=== PATIENT | female | born 1995 | race Caucasian/White ===

== ENCOUNTER 2019-08-23 09:40 | Outpatient (CLI) | payer MEDICAID, SELFPAY ==
--- NOTE | 2019-08-23 | US_ITS ---
WS: [id number] OB ultrasound, 08/23/2019 Clinical Data: NORMAL FIRST IN SECOND TRIMESTER Comparison: None. Findings: There is a single intrauterine in the breech presentation. The placenta is posterior and gr mohan 0. There is a normal amount of amnionic fluid. The heart rate is 157 beats per minute. Measurements of growth and development: BPD: 4.6 cm HC: 18.0 cm AC: 15.9 cm FL: 3.3 cm The estimated weight is 365 or approximately 13 ounces The estimated gestational age is 20 week s 3 days with an IFTIKHAR of approximately 01/07/2020. anatomy show a normal stomach, kidneys, bladder, cord insertion, three-vessel cord, entire spin e, four-chamber heart, lateral cerebral ventricles, cerebellum and cisterna magna. US/US OB >= 14 weeks fetus [id number] Impression: 1. Single intrauterine in breech presentation. 2. Estimated gestational age 20 weeks 3 days with an IFTIKHAR of 01/07/2020. 3. heart rate 157 beats per minute.
== END 2019-08-23 09:41 | disposition home or self-care (01) ==
LOC: RADOUTREAD 16:27
PROVIDERS: Family Provider Family Medicine; PCP Family Medicine; Referring Provider Family Medicine; Visit Provider Family Medicine
DX: Z34.02 Encounter for supervision of normal first pregnancy, second trimester (principal)

== ENCOUNTER 2019-09-09 09:37 | Outpatient (CLI) | payer MEDICAID, SELFPAY | END 2019-09-09 10:45 | disposition home or self-care (01) | LOC: ER 10:32 → OPOB 12:49 | PROVIDERS: Visit Provider Family Medicine | DX: Z53.21 Procedure and treatment not carried out due to patient leaving prior to being seen by health care provider (principal) | CPT/HCPCS: 99281 ==

== ENCOUNTER 2019-09-09 10:10 | Outpatient (CLI) | payer MEDICAID, SELFPAY ==
[2019-09-09 10:20] VITALS: BP 117/61; PULSE 92; RESP 20; TEMP 36.9
[2019-09-09 10:25] VITALS: BMI 44.1
[2019-09-09 10:40] VITALS: BP 117/61; PULSE 92; RESP 20; TEMP 36.9
== END 2019-09-09 10:45 | disposition home or self-care (01) ==
LOC: OPOB 10:30 → OBGYN 10:48 → OPOB 09-10 07:49
PROVIDERS: Family Provider Family Medicine; PCP Family Medicine; Visit Provider Family Medicine
DX: O26.899 Other specified pregnancy related conditions, unspecified trimester (principal); Z3A.00 Weeks of gestation of pregnancy not specified; Z91.81 History of falling
CPT/HCPCS: 99211

== ENCOUNTER 2019-09-27 14:42 | Outpatient (CLI) | payer OTHER, MEDICAID, SELFPAY ==
[2019-09-27 15:00] VITALS: BMI 44.1
[2019-09-27 15:40] VITALS: BP 113/52; PULSE 74; RESP 16; TEMP 36.9
== END 2019-09-27 15:40 | disposition home or self-care (01) ==
LOC: OPOB 15:08 → OBGYN 15:15 → OPOB 09-28 14:44
PROVIDERS: Visit Provider Family Medicine
DX: O26.899 Other specified pregnancy related conditions, unspecified trimester (principal); Z3A.00 Weeks of gestation of pregnancy not specified
CPT/HCPCS: 59025; 99211

== ENCOUNTER 2019-11-16 19:09 | Outpatient (CLI) | payer MEDICAID, SELFPAY ==
[2019-11-16] VITALS (10 sets, daily range): BP systolic 102–116; BP diastolic 40–66; PULSE 88–98; RESP 16; TEMP 37.1; BMI 46.0
[2019-11-16] MEDS: famotidine 20 mg Tablet 40 MG PO (20:24)
[2019-11-16 20:43] LABS: Bilirubin Urine Neg (NEGATIVE); Blood Urine Neg (Negative); Glucose Urine UA Norm (Normal); Ketones Urine 1+ (Negative); Leukocyte Esterase Urine Negative (Negative); Nitrate Urine Negative (Negative); Protein Urine Neg (Negative); Specific Gravity, Urine 1.025 (1.005-1.030); Urine Appearance Hazy (CLEAR); Urine Color Yellow (Yellow); Urobilinogen Urine 1 mg/dL (Negative); pH Urine 5 (5-7)
[2019-11-16 21:16] LABS: RBC Urine 0-4 /hpf (0-2)
[2019-11-16 21:17] LABS: Bacteria Urine 1+; Squamous Epithelial Cell Urine 25-40 (0-5)
[2019-11-16 21:18] LABS: Add Urine Culture? No
== END 2019-11-16 21:45 | disposition home or self-care (01) ==
LOC: OPOB 19:11 → OBGYN 19:12
PROVIDERS: Family Provider Family Medicine; PCP Family Medicine; Visit Provider Family Medicine
DX: O36.8190 Decreased fetal movements, unspecified trimester, not applicable or unspecified (principal); Z3A.00 Weeks of gestation of pregnancy not specified
CPT/HCPCS: 81001; 99211

== ENCOUNTER 2020-01-13 06:35 | Inpatient (IN) | payer MEDICAID, SELFPAY ==
[2020-01-13] VITALS (31 sets, daily range): BP systolic 0–155; BP diastolic 0–87; PULSE 72–83; RESP 18–20; TEMP 36.5–37; BMI 49.1
[2020-01-13 06:54] LABS: Basophils % 0.3 %; Eosinophils # 0.2 10^3/uL (0.0-0.8); Hematocrit 34.9 % (37.0-47.0); Hemoglobin 11.4 g/dL (11.5-15.3); Lymphocytes # 1.9 10^3/uL (0.8-4.8); Lymphocytes % 18.4 %; Mean Corpuscular HGB Conc 32.7 g/dL (30.0-36.0); Mean Corpuscular Hemoglobin 29.5 pg (28.0-34.0); Mean Corpuscular Volume 90.2 fL (81-99); Mean Platelet Volume 9.8 fL (7.4-10.4); Monocytes # 0.7 10^3/uL (0.2-0.9); Monocytes % 6.7 %; Neutrophils # 7.3 10^3/uL (1.8-7.7); Neutrophils % 72.3 %; Nucleated Red Blood Cells % 0 %; Platelet Count 386 10^3/cmm (130-400); Red Blood Count 3.87 10^6/uL (4.1-5.3); Red Cell Distribution Width 12.9 % (12.1-15.1); White Blood Count 10.1 10^3/uL (4.0-10.0)
[2020-01-13] MEDS: miSOPROStol 100 mcg tablet 25 MCG VAGINAL ×3 (07:27→20:31)
[2020-01-13] MEDS: lactated ringers 1,000 ML 999 ML IV (17:46)
[2020-01-13] MEDS: acetaminophen 325 mg Tablet 650 MG PO (23:57)
[2020-01-14] VITALS (151 sets, daily range): BP systolic 0–170; BP diastolic 0–100; PULSE 71–105; RESP 16–20; TEMP 36.6–37.8; O2SAT 94–99
[2020-01-14] MEDS: fentaNYL 50 mcg/mL INJ 2mL IVP ×3 (02:57→06:15)
[2020-01-14] MEDS: oxytocin 30 UNIT/500 ML BAG IV (06:09)
[2020-01-14] MEDS: dextrose 5%-lactated ringers 1,000 ML 125 ML IV ×3 (06:10→20:08)
--- NOTE | 2020-01-14 08:17 | ANES.PREANE2 ---
Pre-Anesthetic Assessment Pre-Anesthetic Assessment: Height/Weight: Height 1.55 m Weight 117.934 kg Temp Pulse Resp BP Pulse Ox 98.0 F 104 H 20 H 127/72 98 01/13/20 21:30 01/14/20 08:13 01/14/20 06:15 01/14/20 08:13 01/14/20 08:14 Preop Diagnosis: IUP Proposed Procedure: Labor Lumbar Epidural Was Beta Ashanti taken within 24 hours: N/A Last intake: 01/12 Social: Social History: No alcohol and No tobacco Exam: Pre-Anes Outpt Exam: alert, oriented x 3, clear to auscultation bilaterally and regular rate & rhythm Airway: Submandibular: WNL Cervical ROM: WNL MP: 3 Dentition: Full History/ROS: No significant history except as noted and No significant complaints Pulmonary: Pulmonary: None reported CV/HEM: CV/HEM: None reported : : None reported Hepatic: Hepatic: None reported GI: GI: GERD Metabolic: Metabolic: Morbid obesity Musc/skel: Musc/skel: None reported Neuropsych: Neuropsych: None reported Anesthetic Plan: ASA status: 2 Anesthesia: General and Regional (specify below) (epidural) Meds/Allergies Current Medications: Current Medications Generic Name Dose Route Start Last Admin Trade Name Freq PRN Reason Stop Dose Admin Acetaminophen 650 mg 01/13/20 06:39 01/13/20 23:57 Tylenol PO 650 mg Q6H PRN Administration MILD TO MODERATE PAIN Fentanyl 25 - 100 mcg 01/14/20 02:50 01/14/20 06:15 Sublimaze IVP 75 mcg Q1H PRN Administration SEVERE PAIN Dextrose/Lactated Ringer's 1,000 mls @ 125 m ls/hr 01/13/20 06:45 01/14/20 06:10 Dextrose 5%-Lact ated Ringers IV 125 mls/hr .Q8H ASHTYN Administration Lactated Ringer's 1,000 mls @ 999 m ls/hr 01/13/20 17:34 01/13/20 17:46 Lactated Ringers IV 999 mls/hr .Q1H1M PRN Administration hyperstimulation Oxytocin 30 unit in 500 ml s @ 1 mls/hr 01/14/20 05:45 01/14/20 06:10 Pitocin IV 2 milliunit/min .Q24H ASHTYN 2 mls/hr Titration Protocol 1 MILLIUNIT/MIN PFSH Anesthesia Female Reproductive History: : 1 Data Anesthesia CBC & Chem 7: 01/13/20 06:25 Other Labs: Laboratory Results - last 48 hr 01/13/20 06:25 WBC 10.1 H RBC 3.87 L Hgb 11.4 L Hct 34.9 L MCV 90.2 MCH 29.5 MCHC 32.7 RDW 12.9 Plt Count 386 MPV 9.8 Neut % (Auto) 72.3 Lymph % (Auto) 18.4 [place] % (Auto) 6.7 Eos % (Auto) 2.0 Baso % (Auto) 0.3 Neut # (Auto) 7.3 Lymph # (Auto) 1.9 [place] # (Auto) 0.7 Eos # (Auto) 0.2 Baso # (Auto) 0.0 Nucleated RBC % (auto) 0 Nucleated RBCs # 0.0 Cardiac Studies: No Data to Display Anesthesia Procedures Epidural: Time Out Performed: Yes Consents Signed: Procedure Consent Consent: from patient, risks and benefits reviewed and patient agrees to proceed Lumbar Level: L3-L4 Epidural position: sitting Epidural procedure: sterile prep of area, 1% lidocaine to numb the area (5), 18 g needle, negative for paresthesia passed, neg for paresthesia, test dose given, 1.5% xylocaine 1:200k epi (5), 0.2% Ropivacaine bolus ml (5), placed PCEA (5cc q10min x 3), no systemic response, sterile dressing applied, L.U.D. no apparent complications and 0.2% Ropiavacaine @ mls/hr (11) Additional Comments: Called to OB for epidural placement, pt evaluated and assessed for placement and explained procedure. Labs reviewed. Pt agrees to proceed. placed to 5cm in space and tolerated well. Bolused with pump 5cc and VSS throughout per nursing chart. Last BP 140/66. Pain much improved.
[2020-01-14] MEDS: lactated ringers 1,000 ML 999 ML IV (08:26)
[2020-01-14] MEDS: ampicillin 2,000 MG in sodium chloride 0.9% (plus) 50 ML 100 MG IV (16:04)
[2020-01-14] MEDS: ondansetron 2 mg/ML SDV 2 mL 4 MG IVP (18:37)
[2020-01-14] MEDS: ampicillin 1,000 MG in sodium chloride 0.9% (plus) 50 ML 100 MG IV (20:07)
--- NOTE | 2020-01-14 20:26 | PC.NURSE ---
Dr. Daniels at nurses station
[2020-01-14] MEDS: lidocaine 2% INJ 20 mL INJECTION (22:24)
--- NOTE | 2020-01-14 23:13 | P.PCNOB_ITS ---
Delivery Note: Date of delivery: January 14, 2020 this 24-year-old 1 now para 1 female was admitted to [facility] for misoprostol cervical ripening for induction purposes at 40 weeks and 6 days gestation. She received a total of 3 doses of misoprostol followed by Pitocin augmentation of labor. She had spontaneous rupture membranes early the morning of the day of delivery. She then baby and making slow cervical change throughout the day. She slowly dilated pleased with dilatation and with much pushing was able to deliver by spontaneous vaginal delivery a healthy, viable male at 2149. Upon delivery of the head the mouth and nose were suctioned. The shoulders were transverse and we had a significant shoulder dystocia. With resetting the legs and Michael maneuver and suprapubic pressure we were finally able to locate the left shoulder and rotate counterclockwise anteriorly and deliver the left shoulder followed by the right shoulder. The was pretty limp at . The infant was immediately laid on the mother's abdomen after suctioning and the umbilical cord was clamped and then cut and the infant was then directly brought to the warmer. Apgars were 4, 5, and 8 at 1, 5 and 10 minutes respectively. There was a nuchal cord x1. The umbilical cord did have 3 blood vessels present. Mom did not have an episiotomy but she did have a third-degree perineal and vaginal laceration. This was repaired using her epidural anesthesia as well as some local anesthesia. The placenta delivered spontaneously at 2155 and appeared to be intact. Her episiotomy was repaired with layered surgical closure using Vicryl suture. Rectal exam demonstrated no obvious extension of the laceration into the rectum. Vaginal sweep was made with a few clots. The weighed 9 pounds 11-1/2 ounces and estimated blood loss was approximately 459 mL. It should be noted that mom overnight fever of 100.0?F orally and was given ampicillin 2 g intravenously followed by 1 g intravenously 4 hours later prior to delivery. Pre-Delivery Course: This patient was followed by this physician throughout most of the course. She did begin care in [facility] but was seen by this physician and approximately 11 weeks gestation for the first visit. Maternal blood type was O+ with antibody screen negative. Hepatitis B, hepatitis C, RPR and HIV were negative. Rubella was immune and group B strep was negative. Glucose screen was normal. The patient was followed to approximately 1 week post dates. Her cervix was not very amenable for induction and therefore we put off cervical ripening until almost 41 weeks gestation. The patient was tolerating things well. She was admitted to the hospital for misoprostol cervical ripening for induction purposes on the day prior to the day of delivery. Delivery: Spontaneous vaginal delivery with moderate shoulder dystocia. Post-Delivery Status: Patient tolerated things fairly well and presently is not bleeding much at all. She will be followed for routine postdelivery care. A&P Assessment and plan (1) Spontaneous vaginal delivery: Patient is doing well at this time and will be followed for routine postdelivery care. Status: Acute (2) Shoulder dystocia during labor and delivery, delivered: The patient did finally deliver the infant after approximately 1 minute of maneuvers secondary to the shoulder dystocia. Status: Acute Coding Level of Care Code Acute Missile Inspector Preflight for [facility] Diagnoses Spontaneous vaginal delivery O80 Shoulder dystocia during labor and delivery, delivered O66.0
[2020-01-15] VITALS (11 sets, daily range): BP systolic 99–134; BP diastolic 57–72; PULSE 75–93; RESP 16–19; TEMP 36.6–37.4; O2SAT 95–98
[2020-01-15] MEDS: benzocaine-menthol 78 gm Canister 1 SPRAY TOPICAL (00:54)
--- NOTE | 2020-01-15 02:20 | PC.NURSE ---
Patient ambulated from LDR4 to 205-2 with assistance at this time in stable condition.
--- NOTE | 2020-01-15 07:21 | P.DS_ITS ---
Discharge Providers ENROUTE CONTROLLER Date of Admission: 01/13/20 06:35 Date of Discharge: 01/15/20 Attending Provider at Admission: Eduardo Daniels MD Attending Provider at Discharge: Eduardo Daniels MD Primary Care Provider: Alicia Godwin DO Diagnoses at Discharge Discharge Diagnosis (1) Spontaneous vaginal delivery: Status: Acute Problem details: Patient has done well since delivery. She is ambulating well and tolerating a regular diet. The had some problems with meconium aspiration and has been transferred to [place]. As mom has been stable will probably discharge this morning. (2) Shoulder dystocia during labor and delivery, delivered: Status: Acute Problem details: Patient has mild lochia without any problems or concerns. Reason for Visit Reason for Visit: Reason For Visit: Hospital Course Hospital Course: Patient has done well since delivery. She is ambulating well and tolerating a regular diet. She is stable for discharge at this time. Information Peripartum Data: Delivery Method: Vaginal Physical Exam Const: COMMON NORMALS: no acute distress, patient oriented x3 and well nourished (Obese.) GENERAL APPEARANCE: cooperative, comfortable and well kempt NUTRITIONAL APPEARANCE: obese ORIENTATION/CONSCIOUSNESS: Yes awake Resp: COMMON NORMALS: normal respiratory effort, No retractions, No use of accessory muscles and clear to auscultation bilaterally AUSCULTATION: clear to auscultation bilaterally Cardio: COMMON NORMALS: regular rate, regular rhythm and No murmurs present (Cardio) RATE: regular rate RHYTHM: regular rhythm GI: COMMON NORMALS: Normal to inspection, nondistended, normoactive bowel sounds present, Soft to palpation and non-tender (Fundus is firm.) PALPATION: Yes Soft to palpation : COMMON NORMALS: Yes no CVA tenderness BLADDER/KIDNEY EXAM: Yes no CVA tenderness Back/Pelvis: COMMON NORMALS: no CVA tenderness Extremity: COMMON NORMALS: normal to inspection, full ROM and no calf tenderness Neuro: COMMON NORMALS: patient oriented x3, CN's II-XII intact bilaterally, moves all extremities, no focal motor deficits and no sensory deficits noted Psych: COMMON NORMALS: mental status grossly normal, Normal thought process present, cooperative and normal affect APPEARANCE: Yes well kempt THOUGHT PROCESS: Normal thought process present Urinary Catheter Management^: Florentino: Cath Placed During This Visit: yes Reason for Continuing Indwelling Catheter: Required Immobilization for Trauma or Surgery or Anesthesia Urinary Catheter Date of Insertion: 01/14/20 Urinary Catheter Time of Insertion: 09:00 Discharge Data Data Completed and Pending: Pending at discharge Category Date Time Status Hemagram Timed Lab 01/15/20 11:09 Ordered Vitals: Last Vital Signs Temp 97.9 F 01/15/20 06:15 Pulse 91 01/15/20 06:15 Resp 16 01/15/20 06:15 BP 99/64 01/15/20 06:15 Pulse Ox 97 01/15/20 06:15 Discharge Plan Discharge Patient Disposition: Home, Self-Care Condition: Stable Prescriptions: New ibuprofen 800 mg Tablet 800 mg PO TID Qty: 90 RF: 2 docusate sodium 100 mg Capsule 100 mg PO BID Qty: 60 RF: 1 Continued Gummy 400 mcg-35 mg -25 mg-5 mg Tablet,Chewable See Rx Instructions .ROUTE .COMPLEX RF: 0 Discharge Orders: Discharge Order (Routine); Ordered 01/15/20 Ordered By: Eduardo Daniels Discharge Diet: Usual diet Discharge Activity: Resume usual activity Patient Instructions: OB Discharge Report, OB Food/Drug Interaction Guide, OB Home Care Instructions, OB Care at Home, OB Vaginal Deliveries Activity Restrictions/Additional Instructions: Patient to call this physician's office on Friday to arrange follow-up with this physician in 6 weeks. She will also follow-up as needed. Discharge Attestations ENROUTE CONTROLLER Time Spent in Discharge Care*: less than 30 min Specific Discharge Activities: Specific discharge activities: educating patient, documenting/other paperwork and evaluating patient/reviewing data Status at Discharge: Cognitive status at discharge: cognitively intact , Behavioral status at discharge: cooperative , Functional status at discharge: independent ambulation Overall status at discharge: patient is back to baseline Coding Level of Care Code Acute Station Air Traffic Control Specialist for mickie Fwd Exam Comprehensive Diagnoses Spontaneous vaginal delivery O80 Shoulder dystocia during labor and delivery, delivered O66.0
[2020-01-15] MEDS: HYDROcodone-acetaminophen 5-325 mg Tablet PO (07:38)
[2020-01-15] MEDS: prenatal vitamin Capsule 1 CAP PO (08:55)
[2020-01-15] MEDS: docusate sodium 100 mg Capsule PO (08:55)
--- NOTE | 2020-01-15 08:59 | PC.NURSE ---
[place] booklet given to mother and video played for mother and father at this time.
[2020-01-15 10:07] LABS: Hematocrit 29.7 % (37.0-47.0); Mean Corpuscular HGB Conc 33.7 g/dL (30.0-36.0); Mean Corpuscular Hemoglobin 30.3 pg (28.0-34.0); Mean Platelet Volume 9.7 fL (7.4-10.4); Platelet Count 362 10^3/cmm (130-400); Red Cell Distribution Width 12.8 % (12.1-15.1); White Blood Count 18.5 10^3/uL (4.0-10.0)
== END 2020-01-15 10:31 | disposition home or self-care (01) | DRG 768 ==
LOC: OPOB 11:02 → OBGYN 11:02
PROVIDERS: Admitting Provider Family Medicine; Family Provider Family Medicine; PCP Family Medicine; Visit Provider Family Medicine
DX: O66.0 Obstructed labor due to shoulder dystocia (principal); Z37.0 Single live birth; O70.20 Third degree perineal laceration during delivery, unspecified; O69.2XX0 Labor and delivery complicated by other cord entanglement, with compression, not applicable or unspecified; O77.0 Labor and delivery complicated by meconium in amniotic fluid; Z3A.40 40 weeks gestation of pregnancy
CPT/HCPCS: 12345; 36415; 51702; 59409; 85025; 85027; 88307; 96375; J0290; J2001; J2405; J2795; J3010

== ENCOUNTER 2021-01-19 16:33 | Emergency (ER) | payer MEDICAID, SELFPAY ==
[2021-01-19 16:53] VITALS: BP 133/83; PULSE 88; RESP 18; TEMP 37.1; O2SAT 99; BMI 41.5
--- NOTE | 2021-01-19 17:29 | ED_ITS ---
Documented by User: Sin Guerrero DO 01/19/21 18:13 HPI - Female Genitourinary General: Chief complaint: Urogenital-Female Stated complaint: , cramping Time Seen by Provider: 01/19/21 17:24 History of Present Illness: HPI Narrative: 25-year-old G2, P1 female. She states she did a test at home. She relates her last menstrual period was sometime in October she is not exactly sure. She has had a little bit of pelvic cramping she denies any vaginal bleeding some dysuria no nausea or vomiting. With her previous she was supplemented with progesterone. Previous delivered at 41 weeks there were no complications otherwise during the no gestational diabetes or hypertension. MD elicited complaint: dysuria Onset (ago): day(s) Location of symptoms: pelvis Severity: mild Quality of pain: cramping Vaginal discharge: none Vaginal bleeding: none Urinary symptoms: Dysuria Exacerbating factors: none Relieving factors: none Associated symptoms: Reports no associated symptoms; Deny abdominal pain or nausea Treatment prior to arrival: none Patient : Yes (Patient reports positive home test) Possible : at home test positive Review of Systems Const: Denies: fever(s), chills, body aches, change in appetite, fatigue or ma laise ENMT: Denies: throat pain, ear or mastoid pain, nasal discharge or nasal congestion Card: Denies: chest pain, edema, dyspnea on exertion or orthopnea Resp: Denies: dyspnea, productive cough or non-productive cough GI: Denies: abdominal pain, nausea, vomiting, hematemesis, coffee ground emesis, diarrhea, constipation, bloating, hematochezia or melena : Denies: flank pain, difficulty voiding, dysuria, urinary frequency or urinary urgency Skin/Breast: Denies: rash or pruritus Physical Exam Const: COMMON NORMALS: no acute distress GENERAL APPEARANCE: cooperative and comfortable ORIENTATION/CONSCIOUSNESS: Yes awake, Yes oriented to person, Yes oriented to place and Yes oriented to time HENMT: COMMON NORMALS: normocephalic, atraumatic, hearing grossly normal bilaterally and external ears normal HEAD & SCALP: normocephalic and atraumatic EXTERNAL EAR: Yes external ears normal Neck/C-Spine: COMMON NORMALS: no JVD Resp: COMMON NORMALS: normal respiratory effort, No retractions, No use of accessory muscles and clear to auscultation bilaterally AUSCULTATION: clear to auscultation bilaterally Cardio: COMMON NORMALS: no JVD, regular rate, regular rhythm and No murmurs present (Cardio) RATE: regular rate RHYTHM: regular rhythm GI: COMMON NORMALS: Soft to palpation and No hepatosplenomegaly present AUSCULTATION: Yes normoactive bowel sounds PALPATION: Yes Soft to palpation, No Tenderness to palpation present (GI), No Guarding due to palpation present (GI) and Yes No hepatosplenomegaly present Extremity: COMMON NORMALS: normal to inspection, capillary refill normal, no clubbing, cyanosis or edema, no calf tenderness and no pedal edema Neuro: SENSORIUM/ORIENTATION: Yes oriented to person, Yes oriented to place and Yes oriented to time Skin: COMMON NORMALS: no rashes or lesions noted GENERAL SKIN EXAM: no rashes or lesions noted Course Vital Signs: Vital signs: Vital Signs Temperature 98.7 F 01/19/21 16:53 Pulse Rate 88 01/19/21 16:53 Respiratory Rate 18 01/19/21 16:53 Blood Pressure 133/83 01/19/21 16:53 Pulse Oximetry 99 01/19/21 16:53 MDM - Female MDM Narrative: Medical decision making narrative: Is unremarkable no sign of urinary tract infection will discharge home continue rate elevated establish with OB soon as she is able. I think her cramping is his typical discomfort of Lab Data: Labs: Lab Results 01/19/21 01/19/21 01/19/21 Range/Units 17:00 17:42 17:42 WBC 9.5 (4.0-10.0) 10^3/ uL RBC 4.45 (4.1-5.3) 10^6/u L Hgb 12.5 (11.5-15.3) g/dL Hct 36.7 L (37.0-47.0) % MCV 82.5 (81-99) fL MCH 28.1 (28.0-34.0) pg MCHC 34.1 (30.0-36.0) g/dL RDW 14.1 (12.1-15.1) % Plt Count 361 (130-400) 10^3/c mm MPV 9.9 (7.4-10.4) fL Neut % (Auto) 69.5 % Lymph % (Auto) 20.9 % [place] % (Auto) 7.1 % Eos % (Auto) 1.8 % Baso % (Auto) 0.5 % Neut # (Auto) 6.63 (1.8-7.7) 10^3/u L Lymph # (Auto) 2.0 (0.8-4.8) 10^3/u L [place] # (Auto) 0.7 (0.2-0.9) 10^3/u L Eos # (Auto) 0.2 (0.0-0.8) 10^3/u L Baso # (Auto) 0.1 (0.0-0.1) 10^3/u L Nucleated RBC % (a uto) 0 % Nucleated RBCs # 0.0 /100WBC Sodium 137 (136-145) mmol/L Potassium 3.8 (3.5-5.1) mmol/L Chloride 105 (98-107) mmol/L Carbon Dioxide 20 L (22-29) mmol/L Anion Gap 15.8 (5-19) BUN 9 (6-20) mg/dL Creatinine 0.4 L (0.5-0.9) mg/dL GFR Calculation 196.1 H (90-130) mL/min Glucose 88 (65-115) mg/dL Calculated Osmolal ity 282 L (285-295) mOsm/k g Calcium 8.6 (8.5-10.5) mg/dL HCG, Qual (Negative) Urine Color Yellow (Yellow) Urine Appearance Clear (CLEAR) Urine pH 6 (5-7) Ur Specific Gravit y 1.020 (1.005-1.030) Urine Protein Neg (Negative) Urine Glucose (UA) Norm (Normal) Urine Ketones Negative (Negative) Urine Blood Neg (Negative) Urine Nitrate Negative (Negative) Urine Bilirubin Neg (Negative) Urine Urobilinogen 1 H (Negative) mg/dL Ur Leukocyte Cheryl ase Negative (Negative) 01/19/21 Range/Units 17:42 WBC (4.0-10.0) 10^3/ uL RBC (4.1-5.3) 10^6/u L Hgb (11.5-15.3) g/dL Hct (37.0-47.0) % MCV (81-99) fL MCH (28.0-34.0) pg MCHC (30.0-36.0) g/dL RDW (12.1-15.1) % Plt Count (130-400) 10^3/c mm MPV (7.4-10.4) fL Neut % (Auto) % Lymph % (Auto) % [place] % (Auto) % Eos % (Auto) % Baso % (Auto) % Neut # (Auto) (1.8-7.7) 10^3/u L Lymph # (Auto) (0.8-4.8) 10^3/u L [place] # (Auto) (0.2-0.9) 10^3/u L Eos # (Auto) (0.0-0.8) 10^3/u L Baso # (Auto) (0.0-0.1) 10^3/u L Nucleated RBC % (a uto) % Nucleated RBCs # /100WBC Sodium (136-145) mmol/L Potassium (3.5-5.1) mmol/L Chloride (98-107) mmol/L Carbon Dioxide (22-29) mmol/L Anion Gap (5-19) BUN (6-20) mg/dL Creatinine (0.5-0.9) mg/dL GFR Calculation (90-130) mL/min Glucose (65-115) mg/dL Calculated Osmolal ity (285-295) mOsm/k g Calcium (8.5-10.5) mg/dL HCG, Qual Positive H (Negative) Urine Color (Yellow) Urine Appearance (CLEAR) Urine pH (5-7) Ur Specific Gravit y (1.005-1.030) Urine Protein (Negative) Urine Glucose (UA) (Normal) Urine Ketones (Negative) Urine Blood (Negative) Urine Nitrate (Negative) Urine Bilirubin (Negative) Urine Urobilinogen (Negative) mg/dL Ur Leukocyte Cheryl ase (Negative) Discharge Plan Discharge Patient Disposition: Home Clinical Impression: , Discomfort during Condition: Stable Prescriptions: No Action 28-800 mg-mcg Tablet 1 tab PO DAILY RF: 0 Discharge Orders: Discharge ED (Routine); Ordered 01/19/21 Ordered By: Sin Guerrero Discharge Diet: Usual diet Discharge Activity: Resume usual activity Patient Instructions: Opioid Safety Activity Restrictions/Additional Instructions: Follow-up with [facility] as soon as you are able Coding Level of Care Code ED Cloth Doffer for Chg Fwd Exam Comprehensive Documented by User: Fco Angulo, 01/19/21 18:51 HPI - Female Genitourinary General: Chief complaint: Urogenital-Female Stated complaint: , cramping Time Seen by Provider: 01/19/21 17:24 Course Vital Signs: Vital signs: Vital Signs Temperature 98.7 F 01/19/21 16:53 Pulse Rate 88 01/19/21 16:53 Respiratory Rate 18 01/19/21 16:53 Blood Pressure 133/83 01/19/21 16:53 Pulse Oximetry 99 01/19/21 16:53 MDM - Female MDM Narrative: Medical decision making narrative: Originally signed out to me by Dr. Guerrero. He took care of the patient. He arranged for her discharge, as her results came back Lab Data: Labs: Lab Results 01/19/21 01/19/21 01/19/21 Range/Units 17:00 17:42 17:42 WBC 9.5 (4.0-10.0) 10^3/ uL RBC 4.45 (4.1-5.3) 10^6/u L Hgb 12.5 (11.5-15.3) g/dL Hct 36.7 L (37.0-47.0) % MCV 82.5 (81-99) fL MCH 28.1 (28.0-34.0) pg MCHC 34.1 (30.0-36.0) g/dL RDW 14.1 (12.1-15.1) % Plt Count 361 (130-400) 10^3/c mm MPV 9.9 (7.4-10.4) fL Neut % (Auto) 69.5 % Lymph % (Auto) 20.9 % [place] % (Auto) 7.1 % Eos % (Auto) 1.8 % Baso % (Auto) 0.5 % Neut # (Auto) 6.63 (1.8-7.7) 10^3/u L Lymph # (Auto) 2.0 (0.8-4.8) 10^3/u L [place] # (Auto) 0.7 (0.2-0.9) 10^3/u L Eos # (Auto) 0.2 (0.0-0.8) 10^3/u L Baso # (Auto) 0.1 (0.0-0.1) 10^3/u L Nucleated RBC % (a uto) 0 % Nucleated RBCs # 0.0 /100WBC Sodium 137 (136-145) mmol/L Potassium 3.8 (3.5-5.1) mmol/L Chloride 105 (98-107) mmol/L Carbon Dioxide 20 L (22-29) mmol/L Anion Gap 15.8 (5-19) BUN 9 (6-20) mg/dL Creatinine 0.4 L (0.5-0.9) mg/dL GFR Calculation 196.1 H (90-130) mL/min Glucose 88 (65-115) mg/dL Calculated Osmolal ity 282 L (285-295) mOsm/k g Calcium 8.6 (8.5-10.5) mg/dL HCG, Qual (Negative) Urine Color Yellow (Yellow) Urine Appearance Clear (CLEAR) Urine pH 6 (5-7) Ur Specific Gravit y 1.020 (1.005-1.030) Urine Protein Neg (Negative) Urine Glucose (UA) Norm (Normal) Urine Ketones Negative (Negative) Urine Blood Neg (Negative) Urine Nitrate Negative (Negative) Urine Bilirubin Neg (Negative) Urine Urobilinogen 1 H (Negative) mg/dL Ur Leukocyte Cheryl ase Negative (Negative) 01/19/21 Range/Units 17:42 WBC (4.0-10.0) 10^3/ uL RBC (4.1-5.3) 10^6/u L Hgb (11.5-15.3) g/dL Hct (37.0-47.0) % MCV (81-99) fL MCH (28.0-34.0) pg MCHC (30.0-36.0) g/dL RDW (12.1-15.1) % Plt Count (130-400) 10^3/c mm MPV (7.4-10.4) fL Neut % (Auto) % Lymph % (Auto) % [place] % (Auto) % Eos % (Auto) % Baso % (Auto) % Neut # (Auto) (1.8-7.7) 10^3/u L Lymph # (Auto) (0.8-4.8) 10^3/u L [place] # (Auto) (0.2-0.9) 10^3/u L Eos # (Auto) (0.0-0.8) 10^3/u L Baso # (Auto) (0.0-0.1) 10^3/u L Nucleated RBC % (a uto) % Nucleated RBCs # /100WBC Sodium (136-145) mmol/L Potassium (3.5-5.1) mmol/L Chloride (98-107) mmol/L Carbon Dioxide (22-29) mmol/L Anion Gap (5-19) BUN (6-20) mg/dL Creatinine (0.5-0.9) mg/dL GFR Calculation (90-130) mL/min Glucose (65-115) mg/dL Calculated Osmolal ity (285-295) mOsm/k g Calcium (8.5-10.5) mg/dL HCG, Qual Positive H (Negative) Urine Color (Yellow) Urine Appearance (CLEAR) Urine pH (5-7) Ur Specific Gravit y (1.005-1.030) Urine Protein (Negative) Urine Glucose (UA) (Normal) Urine Ketones (Negative) Urine Blood (Negative) Urine Nitrate (Negative) Urine Bilirubin (Negative) Urine Urobilinogen (Negative) mg/dL Ur Leukocyte Cheryl ase (Negative) Discharge Plan Discharge Patient Disposition: Home Clinical Impression: , Discomfort during Condition: Stable Prescriptions: No Action 28-800 mg-mcg Tablet 1 tab PO DAILY RF: 0 Discharge Orders: Discharge ED (Routine); Ordered 01/19/21 Ordered By: Sin Guerrero Discharge Diet: Usual diet Discharge Activity: Resume usual activity Patient Instructions: Opioid Safety Activity Restrictions/Additional Instructions: Follow-up with [facility] as soon as you are able Coding Level of Care Code ED Cloth Doffer for Chg Fwd Exam Comprehensive
--- NOTE | 2021-01-19 17:45 | PC.NURSE ---
patient c/o tightness to lower abdomen and pelvic area, denied any vaginal bleeding. no acute distress noted at this time.
[2021-01-19 17:50] LABS: Add Urine Microscopic? NO; Charge for UA Resulting for Rev
[2021-01-19 17:55] LABS: Basophils # 0.1 10^3/uL (0.0-0.1); Basophils % 0.5 %; Eosinophils # 0.2 10^3/uL (0.0-0.8); Eosinophils % 1.8 %; Hematocrit 36.7 % (37.0-47.0); Hemoglobin 12.5 g/dL (11.5-15.3); Lymphocytes % 20.9 %; Mean Corpuscular HGB Conc 34.1 g/dL (30.0-36.0); Mean Corpuscular Hemoglobin 28.1 pg (28.0-34.0); Mean Corpuscular Volume 82.5 fL (81-99); Mean Platelet Volume 9.9 fL (7.4-10.4); Monocytes # 0.7 10^3/uL (0.2-0.9); Monocytes % 7.1 %; Neutrophils # 6.63 10^3/uL (1.8-7.7); Neutrophils % 69.5 %; Nucleated Red Blood Cells % 0 %; Platelet Count 361 10^3/cmm (130-400); Red Blood Count 4.45 10^6/uL (4.1-5.3); Red Cell Distribution Width 14.1 % (12.1-15.1); White Blood Count 9.5 10^3/uL (4.0-10.0)
[2021-01-19 17:59] LABS: HCG, Serum Qual Positive (Negative)
[2021-01-19 18:02] LABS: Bilirubin Urine Neg (Negative); Blood Urine Neg (Negative); Glucose Urine UA Norm (Normal); Ketones Urine Negative (Negative); Leukocyte Esterase Urine Negative (Negative); Nitrate Urine Negative (Negative); Protein Urine Neg (Negative); Urine Appearance Clear (CLEAR); Urine Color Yellow (Yellow); Urobilinogen Urine 1 mg/dL (Negative); pH Urine 6 (5-7)
[2021-01-19 18:07] LABS: Anion Gap 15.8 (5-19); Blood Urea Nitrogen 9 mg/dL (6-20); Calcium 8.6 mg/dL (8.5-10.5); Carbon Dioxide 20 mmol/L (22-29); Chloride 105 mmol/L (98-107); Glomerular Filtration Rate 196.1 mL/min (90-130); Glucose 88 mg/dL (65-115); Osmolality Calculated 282 mOsm/kg (285-295); Potassium 3.8 mmol/L (3.5-5.1); Sodium 137 mmol/L (136-145)
[2021-01-19 19:18] VITALS: BP 105/74; PULSE 78; RESP 16; O2SAT 98
== END 2021-01-19 19:20 | disposition home or self-care (01) ==
PROVIDERS: Emergency Provider Family Medicine
DX: O26.899 Other specified pregnancy related conditions, unspecified trimester (principal); R10.9 Unspecified abdominal pain; Z3A.00 Weeks of gestation of pregnancy not specified
CPT/HCPCS: 80048; 81003; 84703; 85025; 99282

== ENCOUNTER → 2021-01-23 08:44 | Outpatient (BNVA) | payer MEDICAID, SELFPAY | PROVIDERS: Family Provider Family Medicine; PCP Family Medicine; Visit Provider Nurse Practitioner Women's Health | DX: O99.211 Obesity complicating pregnancy, first trimester (principal); O09.291 Supervision of pregnancy with other poor reproductive or obstetric history, first trimester; Z15.89 Genetic susceptibility to other disease | CPT/HCPCS: 81000 ==

== ENCOUNTER → 2021-02-13 11:49 | Outpatient (BNVA) | payer MEDICAID, SELFPAY | PROVIDERS: Family Provider Family Medicine; PCP Family Medicine; Visit Provider Obstetrics & Gynecology | DX: Z34.80 Encounter for supervision of other normal pregnancy, unspecified trimester (principal); Z13.29 Encounter for screening for other suspected endocrine disorder | CPT/HCPCS: 80307; 81000; 82950; 84443; 85027; 86592; 86762; 86803; 86850; 86900; 87086; 87340; 87806 ==

== ENCOUNTER → 2021-02-20 12:00 | Outpatient (BNVA) | payer MEDICAID, SELFPAY | PROVIDERS: Family Provider Family Medicine; PCP Family Medicine; Visit Provider Obstetrics & Gynecology | DX: O09.291 Supervision of pregnancy with other poor reproductive or obstetric history, first trimester (principal); Z3A.00 Weeks of gestation of pregnancy not specified | CPT/HCPCS: 81000; 87491; 87591; 88175 ==

== ENCOUNTER → 2021-03-09 10:30 | Outpatient (BNVA) | payer MEDICAID, SELFPAY | PROVIDERS: Family Provider Family Medicine; PCP Family Medicine; Visit Provider Nurse Practitioner Women's Health | DX: O99.211 Obesity complicating pregnancy, first trimester (principal) | CPT/HCPCS: 81000; 82105 ==

== ENCOUNTER → 2021-04-09 15:35 | Outpatient (BNVA) | payer MEDICAID, SELFPAY | PROVIDERS: Family Provider Family Medicine; PCP Family Medicine; Visit Provider Obstetrics & Gynecology | DX: O99.211 Obesity complicating pregnancy, first trimester (principal); O09.291 Supervision of pregnancy with other poor reproductive or obstetric history, first trimester | CPT/HCPCS: 81000 ==

== ENCOUNTER → 2021-04-17 10:07 | Outpatient (BNVA) | payer MEDICAID, SELFPAY | PROVIDERS: Family Provider Family Medicine; PCP Family Medicine; Visit Provider Obstetrics & Gynecology | DX: R39.15 Urgency of urination (principal); R30.0 Dysuria | CPT/HCPCS: 81000; 87077; 87086; 87184 ==

== ENCOUNTER → 2021-04-18 12:07 | Outpatient (BNVA) | payer MEDICAID, SELFPAY | PROVIDERS: Family Provider Family Medicine; PCP Family Medicine; Visit Provider Obstetrics & Gynecology | DX: Z34.80 Encounter for supervision of other normal pregnancy, unspecified trimester (principal) | CPT/HCPCS: 81000 ==

== ENCOUNTER → 2021-05-10 13:16 | Outpatient (BNVA) | payer MEDICAID, SELFPAY | PROVIDERS: Family Provider Family Medicine; PCP Family Medicine; Visit Provider Nurse Practitioner Women's Health | DX: O99.211 Obesity complicating pregnancy, first trimester (principal); O23.40 Unspecified infection of urinary tract in pregnancy, unspecified trimester | CPT/HCPCS: 81000 ==

== ENCOUNTER → 2021-06-04 09:11 | Outpatient (BNVA) | payer MEDICAID, SELFPAY | PROVIDERS: Family Provider Family Medicine; PCP Family Medicine; Visit Provider Obstetrics & Gynecology | DX: O23.40 Unspecified infection of urinary tract in pregnancy, unspecified trimester (principal); O99.211 Obesity complicating pregnancy, first trimester; O09.291 Supervision of pregnancy with other poor reproductive or obstetric history, first trimester | CPT/HCPCS: 81000; 82950; 85027; 87086 ==

== ENCOUNTER 2021-06-05 17:42 | Outpatient (CLI) | payer MEDICAID, SELFPAY ==
[2021-06-05 17:45] VITALS: BMI 43.8
[2021-06-05 17:58] VITALS: BP 126/63; PULSE 91
[2021-06-05 18:13] VITALS: BP 108/60; PULSE 91
[2021-06-05 18:28] VITALS: BP 102/57; PULSE 84
[2021-06-05 18:43] VITALS: BP 102/58; PULSE 88
[2021-06-05] MEDS: lidocaine 2% viscous 15 ML, aluminum-mag hydrox-simethicon 30 ML, sucralfate oral liq 1 GM PO (18:58)
[2021-06-05 19:00] VITALS: BP 102/58; PULSE 88; RESP 18; TEMP 36.8
== END 2021-06-05 19:00 | disposition home or self-care (01) ==
LOC: OPOB 17:51 → OBGYN 17:52
PROVIDERS: Visit Provider Obstetrics & Gynecology
DX: O26.899 Other specified pregnancy related conditions, unspecified trimester (principal); R42 Dizziness and giddiness; H53.8 Other visual disturbances
CPT/HCPCS: 59025; 99211

== ENCOUNTER → 2021-06-06 08:45 | Outpatient (BNVA) | payer MEDICAID, SELFPAY | PROVIDERS: Family Provider Family Medicine; PCP Family Medicine; Visit Provider Obstetrics & Gynecology | DX: R73.09 Other abnormal glucose (principal) | CPT/HCPCS: 82951; 82952 ==

== ENCOUNTER → 2021-06-19 10:18 | Outpatient (BNVA) | payer MEDICAID, SELFPAY | PROVIDERS: Family Provider Family Medicine; PCP Family Medicine; Visit Provider Obstetrics & Gynecology | DX: Z34.80 Encounter for supervision of other normal pregnancy, unspecified trimester (principal) | CPT/HCPCS: 81000 ==

== ENCOUNTER → 2021-06-27 15:07 | Outpatient (BNVA) | payer MEDICAID, SELFPAY | PROVIDERS: Family Provider Family Medicine; PCP Family Medicine; Visit Provider Obstetrics & Gynecology | DX: O36.8190 Decreased fetal movements, unspecified trimester, not applicable or unspecified (principal) | CPT/HCPCS: 81000 ==

== ENCOUNTER → 2021-07-25 14:18 | Outpatient (BNVA) | payer MEDICAID, SELFPAY | PROVIDERS: Family Provider Family Medicine; PCP Family Medicine; Visit Provider Obstetrics & Gynecology | DX: Z34.80 Encounter for supervision of other normal pregnancy, unspecified trimester (principal) | CPT/HCPCS: 81000; 87081 ==

== ENCOUNTER → 2021-08-03 11:13 | Outpatient (BNVA) | payer MEDICAID, SELFPAY | PROVIDERS: Family Provider Family Medicine; PCP Family Medicine; Visit Provider Obstetrics & Gynecology | DX: Z34.80 Encounter for supervision of other normal pregnancy, unspecified trimester (principal) | CPT/HCPCS: 81000 ==

== ENCOUNTER → 2021-08-08 08:16 | Outpatient (BNVA) | payer MEDICAID, SELFPAY | PROVIDERS: Family Provider Family Medicine; PCP Family Medicine; Visit Provider Nurse Practitioner Women's Health | DX: Z34.80 Encounter for supervision of other normal pregnancy, unspecified trimester (principal) | CPT/HCPCS: 81000 ==

== ENCOUNTER → 2021-08-13 00:01 | Outpatient (BNVA) | payer MEDICAID, SELFPAY | PROVIDERS: Family Provider Family Medicine; PCP Family Medicine; Visit Provider Obstetrics & Gynecology | DX: Z30.2 Encounter for sterilization (principal); O82 Encounter for cesarean delivery without indication | CPT/HCPCS: 87635 ==

== ENCOUNTER 2021-08-19 19:02 | Inpatient (IN) | payer MEDICAID, SELFPAY ==
[2021-08-19] VITALS (23 sets, daily range): BP systolic 88–114; BP diastolic 44–58; PULSE 81–115; TEMP 36.1–36.6; O2SAT 94–98; BMI 45.7
[2021-08-19] MEDS: lactated ringers 1,000 ML 999 ML IV (19:55)
[2021-08-19] MEDS: ampicillin 2,000 MG in sodium chloride 0.9% (plus) 50 ML 100 MG IV (19:55)
[2021-08-19 20:07] LABS: Basophils % 0.3 %; Eosinophils # 0.1 10^3/uL (0.0-0.8); Eosinophils % 1.3 %; Hemoglobin 10.7 g/dL (11.5-15.3); Lymphocytes # 2.5 10^3/uL (0.8-4.8); Lymphocytes % 25.9 %; Mean Corpuscular HGB Conc 32.4 g/dL (30.0-36.0); Mean Corpuscular Hemoglobin 28.5 pg (28.0-34.0); Mean Platelet Volume 9.9 fL (7.4-10.4); Monocytes # 0.7 10^3/uL (0.2-0.9); Neutrophils # 6.21 10^3/uL (1.8-7.7); Neutrophils % 65.3 %; Nucleated Red Blood Cells % 0 %; Platelet Count 362 10^3/cmm (130-400); Red Blood Count 3.75 10^6/uL (4.1-5.3); Red Cell Distribution Width 13.5 % (12.1-15.1); White Blood Count 9.5 10^3/uL (4.0-10.0)
[2021-08-19] MEDS: dextrose 5%-lactated ringers 1,000 ML 125 ML IV (20:29)
[2021-08-19] MEDS: miSOPROStol 100 mcg tablet 25 MCG VAGINAL (21:05)
[2021-08-20] VITALS (78 sets, daily range): BP systolic 82–246; BP diastolic 46–122; PULSE 71–109; RESP 16–17; TEMP 35.2–36.6; O2SAT 91–99
[2021-08-20] MEDS: ampicillin 1,000 MG in sodium chloride 0.9% (plus) 50 ML 100 MG IV ×4 (01:27→14:56)
[2021-08-20] MEDS: miSOPROStol 100 mcg tablet 25 MCG VAGINAL ×2 (01:30→06:00)
[2021-08-20] MEDS: dextrose 5%-lactated ringers 1,000 ML 125 ML IV (04:57)
[2021-08-20] MEDS: oxytocin 30 UNIT/500 ML BAG IV (11:00)
[2021-08-20] MEDS: lactated ringers 1,000 ML 999 ML IV (14:58)
--- NOTE | 2021-08-20 15:12 | ANES.PREANE2 ---
Pre-Anesthetic Assessment Pre-Anesthetic Assessment: Height/Weight: Height 1.55 m Weight 109.769 kg Temp Pulse Resp BP Pulse Ox 95.4 F L 81 17 97/49 96 08/20/21 12:28 08/20/21 14:47 08/20/21 08:34 08/20/21 14:47 08/19/21 20:09 Preop Diagnosis: IUP Proposed Procedure: Labor epidural Was Beta Ashanti taken within 24 hours: N/A Was Clonidine taken within 24 hours: N/A Social: Social History: No alcohol and No tobacco Exam: Pre-Anes Outpt Exam: alert, oriented x 3, clear to auscultation bilaterally and regular rate & rhythm Airway: Submandibular: WNL Cervical ROM: WNL History/ROS: No significant history except as noted and No significant complaints Pulmonary: Pulmonary: None reported CV/HEM: CV/HEM: None reported : : None reported Hepatic: Hepatic: None reported GI: GI: None reported Metabolic: Metabolic: Morbid obesity Musc/skel: Musc/skel: None reported Neuropsych: Neuropsych: None reported Anesthetic Plan: ASA status: 3 Anesthesia: Anesthesia Evaluation and Regional (specify below) (Labor epidural) Risk of > 500 ml blood loss (7ml/kg in children): No Other Pertinent Information: We discussed risk and benefits of labor epidural including failed block, one sided block, nerve injury including paralysis, hematoma, abscess, infection, LAST, PDPH, hypotension, low back pain and bruising. Consent signed. Meds/Allergies Current Medications: Current Medications Generic Name Dose Route Start Last Admin Trade Name Freq PRN Reason Stop Dose Admin Ampicillin Sodium 1,000 mg/ 50 mls @ 100 mls/ hr 08/19/21 23:45 08/20/21 14:56 Sodium Chloride IV 100 mls/hr Q4H ASHTYN Administration Protocol Dextrose/Lactated Ringer's 1,000 mls @ 125 m ls/hr 08/19/21 19:45 08/20/21 04:57 Dextrose 5%-Lact ated Ringers IV 125 mls/hr .Q8H ASHTYN Administration Oxytocin 30 unit in 500 ml s @ 1 mls/hr 08/20/21 11:00 08/20/21 13:35 Pitocin IV 20 milliunit/min .Q24H ASHTYN 20 mls/hr Titration Protocol 1 MILLIUNIT/MIN Lactated Ringer's 1,000 mls @ 999 m ls/hr 08/20/21 14:24 08/20/21 14:58 Lactated Ringers IV 999 mls/hr .Q1H1M PRN Administration See label comment s PFSH Anesthesia PFSH: Medical History No pertinent past medical history Denies diabetes, asthma, hypertension, seizures, DVT/PE PCP: Dr. Daniels Surgical History History of tonsillectomy and adenoidectomy (~2004) as a child Family History Family/Other Breast cancer Maternal Great Aunt--dx age 55 Colon cancer Maternal Great Aunt-- dx age 60 Ovarian cancer Maternal Cousin--dx age unknown Mother Diabetes Hypertension Heart disease Father Diabetes Hypertension Stroke Grandmother Diabetes Maternal Hypercholesteremia Maternal Stroke Paternal Thyroid disease Maternal Denies family history of Uterine cancer Female Reproductive History: : 2 Data Anesthesia CBC & Chem 7: 08/19/21 19:45 Other Labs: Laboratory Results - last 48 hr 08/19/21 19:45 WBC 9.5 RBC 3.75 L Hgb 10.7 L Hct 33.0 L MCV 88.0 MCH 28.5 MCHC 32.4 RDW 13.5 Plt Count 362 MPV 9.9 Neut % (Auto) 65.3 Lymph % (Auto) 25.9 [place] % (Auto) 7.0 Eos % (Auto) 1.3 Baso % (Auto) 0.3 Neut # (Auto) 6.21 Lymph # (Auto) 2.5 [place] # (Auto) 0.7 Eos # (Auto) 0.1 Baso # (Auto) 0.0 Nucleated RBC % (auto) 0 Nucleated RBCs # 0.0 Cardiac Studies: No Data to Display
--- NOTE | 2021-08-20 16:01 | ANES.PROC ---
Anesthesia Procedures Procedure/Date: 08/20/21 Epidural: Time Out Performed: Yes ([id number]) Consents Signed: Procedure Consent Consent: from patient Lumbar Level: L3-L4 Epidural position: sitting Epidural procedure: sterile prep of area, 1% lidocaine to numb the area, 18 g needle, neg for paresthesia, test dose given, 1.5% xylocaine 1:200k epi, no systemic response, sterile dressing applied and 0.2% Ropiavacaine @ mls/hr (13 ml/hour) Additional Comments: After time out patient sat up, prepped and draped in usual fashion. Skin wheel, Touhy w/ stylet introduced, unable to engage ligament. Additional LA injected in new position, ligament engaged, Touhy introduced with stylet, stylet removed with return of blood. Touhy removed, pressure held. Patient did not tolerate well first two attempts. Mix of pain and anxiety, very tearful. Patient allowed to relax and recover. Drape removed. Patient repositioned on bed, sitting. New epidural tray opened, prepped and draped. Skin wheel with 1% LA. Touhy with stylet introduced. Ligament engaged. Using saline DEYSI technique epidural space encountered at 8 cm. Epidural catheter threaded to 14 cm. Negative aspiration, test dose negative. 3rd attempt successful, tolerated well, good block.
--- NOTE | 2021-08-20 16:54 | P.HPUD_ITS ---
Labor & Delivery H&P Update Date of Procedure: August 20, 2021 Date H&P Performed: 08/15/21 H&P update information: I have reviewed H&P completed within last 30 days, I have examined patient prior to procedure, No changes to prior documentation and H&P is in [facility] [place] on date indicated Admission Diagnosis: Preop diagnosis: IUP
--- NOTE | 2021-08-20 19:14 | P.PCNOB_ITS ---
Delivery Note: Date of delivery: August 20, 2021 - PRE-DELIVERY DIAGNOSIS: 25-year-old 2 para 1-0-0-1 at 39 weeks and 2 days gestation Elective induction of labor GBS positive Desires sterilization-interval sterilization Morbid obesity with a BMI of 45 History of macrosomia with shoulder dystocia POST-DELIVERY DIAGNOSIS: Vaginal delivery on 08/20/2021. PROCEDURE: Vaginal delivery on 08/20/2021 ANESTHESIA: Epidural anesthesia DELIVERING PHYSICIAN: Maxwell Webb FACOG PRE-DELIVERY COURSE: Ms. Nj is a 25-year-old 2 para 1-0-0-1 at 39 weeks and 2 days who presented to labor and delivery on 08/19/2021 at 7 PM for elective induction of labor. She is GBS positive and had had an uncomplicated course. Her history was significant for a previous history of macrosomia and shoulder dystocia with complications. On presentation she was noted to be 1 cm, 30 to 40% and -3 station. tracing was category 1. She was admitted to labor and delivery and started on antibiotics for GBS prophylaxis. She received adequate prophylaxis with ampicillin. Induction was started with Cytotec placed at 9 PM and she received a total of 3 doses of Cytotec at 9 PM, 1 AM and 5:30 AM. On examination at 7:30 AM on 08/20/2021 she was noted to be attached 2 cm, 50% and -3 station. Patient was allowed to eat and ambulate and shower and Pitocin was started at 11 AM titrated to a maximum of 20 mIU. tracing remained category 1 and she had regular contractions every 2 minutes. She was worried about having pain and an epidural was placed. [address] the epidural. On examination at 4:30 PM she was noted to be 3 to 4 cm, 60% and -2 station and she hand at the time of exam spontaneous rupture of membranes with clear fluid. She made rapid cervical change after this and was fully dilated at 6:29 PM feeling a lot of pressure and she was set up in lithotomy position ready to push. tracing was category 1 thus far. DELIVERY NOTE: She was set up in lithotomy position and was pushing effectively. She was noted to be +3 station and continued pushing well. The head delivered in PB position, nuchal cord x1 was present which was reduced easily without any difficulty.. The shoulders and rest of the body followed with her next push-with the right posterior hand followed by the shoulder delivering without difficulty before the anterior shoulder. The baby's mouth and nose were suctioned and the baby was placed on the mother's belly. Once cord pulsations stopped the cord was clamped and cut. The placenta delivered spontaneously intact with membranes and was discarded. The fundus was noted to be firm and well contracted. The vagina and cervix were inspected and no cervical or sulcal lacerations were noted. The perineum was noted to be intact except for a first-degree perineal tear which was repaired with 3-0 Vicryl in a continuous interlocking fashion. Good hemostasis and reapproximation was obtained. Baby boy, Trace born at 6:47 PM on 08/20/2021 with 9/9, weighing 8 pounds 2 ounces, 3690 g, 20-1/4 inches long. Placenta was delivered spontaneously intact with membranes at 6:49 PM. Cotyledons were intact , centrally inserted umbilical cord with 3 vessels noted. Estimated blood loss 200 mL. Complications-none, both baby and mother were left to recover in a stable condition. This documentation was created by [employer] cement mixer driver software (known for inherent cement mixer driver error). Every effort was made to assure accuracy of cement mixer driver. Any obvious errors or omissions should be clarified with the author of the document. History History History 2 Term 1 Miscarriages/Ectopic 0 0 Living Children 1 Other History: 2 Para 2001 x 2 1--> 01/14/2020, male, (Srinivasa) 9lbs 11oz, full term vaginal delivery at 40 weeks and 6 days, complicated by low progesterone and required progesterone supplement (800mg per day) pills and vaginal suppository, delivery with complications-- Macrosomia, baby fractured clavical, delivered by Dr. Daniels. Delivery notes were reviewed--transverse presentation of shoulder requiring Micahel suprapubic and delivery of posterior shoulder. Notes third degree perineal tear 2---> 08/20/2021, male, (trace), 8 pounds 2 ounces, full-term vaginal delivery at 39 weeks and [address] Webb at [facility]. First-degree vaginal tear. No complications in the . Coding Level of Care Code Acute Colorist Photography for Isauro Sullivan
[2021-08-20] MEDS: ibuprofen 800 mg tablet PO (21:29)
[2021-08-20] MEDS: benzocaine-menthol 78 gm Canister 1 SPRAY TOPICAL (21:32)
[2021-08-21] VITALS (11 sets, daily range): BP systolic 97–127; BP diastolic 50–67; PULSE 71–79; RESP 16; TEMP 35–36.9
--- NOTE | 2021-08-21 07:06 | ANE.PACU2 ---
Inpatient post-anesthesia follow up: Airway intact: Yes Vital signs: Temperature 96.4 F Pulse Rate 71 Respiratory Rate 16 Blood Pressure 98/50 Pulse Oximetry 97 Oxygen Delivery Me thod Room Air Oxygen Flow Rate Fraction of Inspir ed Oxygen Hydration adequate: Yes Nausea and vomiting: No Pain level: 2 Mental status: Baseline
[2021-08-21 07:55] LABS: Hematocrit 31.1 % (37.0-47.0); Hemoglobin 10.2 g/dL (11.5-15.3); Mean Corpuscular HGB Conc 32.8 g/dL (30.0-36.0); Mean Corpuscular Hemoglobin 28.8 pg (28.0-34.0); Mean Corpuscular Volume 87.9 fl (81-99); Platelet Count 304 10^3/cmm (130-400); Red Blood Count 3.54 10^6/uL (4.1-5.3); Red Cell Distribution Width 13.4 % (12.1-15.1); White Blood Count 12.4 10^3/uL (4.0-10.0)
[2021-08-21] MEDS: docusate sodium 100 mg Capsule PO (09:23)
[2021-08-21] MEDS: ibuprofen 800 mg tablet PO ×2 (09:23→15:07)
[2021-08-21] MEDS: prenatal vitamin Capsule 1 CAP PO (09:23)
--- NOTE | 2021-08-21 16:26 | PM.OBGYDC ---
Discharge Providers CUSTOMER ACQUISITION SPECIALIST Date of Admission: 08/19/21 19:02 Date of Discharge: 08/21/21 Attending Provider at Admission: Maxwell Jett MD Attending Provider at Discharge: Maxwell Jett MD Primary Care Provider: PRE-DELIVERY DIAGNOSIS: 25-year-old 2 para 1-0-0-1 at 39 weeks and 2 days gestation Elective induction of labor GBS positive Desires sterilization-interval sterilization Morbid obesity with a BMI of 45 History of macrosomia with shoulder dystocia POST-DELIVERY DIAGNOSIS: Vaginal delivery on 08/20/2021. PROCEDURE: Vaginal delivery on 08/20/2021 ANESTHESIA: Epidural anesthesia DELIVERING PHYSICIAN: Maxwell Webb FACOG PRE-DELIVERY COURSE: Ms. Nj is a 25-year-old 2 para 1-0-0-1 at 39 weeks and 2 days who presented to labor and delivery on 08/19/2021 at 7 PM for elective induction of labor. She is GBS positive and had had an uncomplicated course. Her history was significant for a previous history of macrosomia and shoulder dystocia with complications. On presentation she was noted to be 1 cm, 30 to 40% and -3 station. tracing was category 1. She was admitted to labor and delivery and started on antibiotics for GBS prophylaxis. She received adequate prophylaxis with ampicillin. Induction was started with Cytotec placed at 9 PM and she received a total of 3 doses of Cytotec at 9 PM, 1 AM and 5:30 AM. On examination at 7:30 AM on 08/20/2021 she was noted to be attached 2 cm, 50% and -3 station. Patient was allowed to eat and ambulate and shower and Pitocin was started at 11 AM titrated to a maximum of 20 mIU. tracing remained category 1 and she had regular contractions every 2 minutes. She was worried about having pain and an epidural was placed. [address] the epidural. On examination at 4:30 PM she was noted to be 3 to 4 cm, 60% and -2 station and she hand at the time of exam spontaneous rupture of membranes with clear fluid. She made rapid cervical change after this and was fully dilated at 6:29 PM feeling a lot of pressure and she was set up in lithotomy position ready to push. tracing was category 1 thus far. DELIVERY NOTE: She was set up in lithotomy position and was pushing effectively. She was noted to be +3 station and continued pushing well. The head delivered in PB position, nuchal cord x1 was present which was reduced easily without any difficulty.. The shoulders and rest of the body followed with her next push-with the right posterior hand followed by the shoulder delivering without difficulty before the anterior shoulder. The baby's mouth and nose were suctioned and the baby was placed on the mother's belly. Once cord pulsations stopped the cord was clamped and cut. The placenta delivered spontaneously intact with membranes and was discarded. The fundus was noted to be firm and well contracted. The vagina and cervix were inspected and no cervical or sulcal lacerations were noted. The perineum was noted to be intact except for a first-degree perineal tear which was repaired with 3-0 Vicryl in a continuous interlocking fashion. Good hemostasis and reapproximation was obtained. Baby boy, Trace born at 6:47 PM on 08/20/2021 with 9/9, weighing 8 pounds 2 ounces, 3690 g, 20-1/4 inches long. Placenta was delivered spontaneously intact with membranes at 6:49 PM. Cotyledons were intact , centrally inserted umbilical cord with 3 vessels noted. Estimated blood loss 200 mL. Complications-none, both baby and mother were left to recover in a stable condition. HOSPITAL COURSE: She underwent an uncomplicated vaginal delivery on 08/20/2021. She did well on day 0 and was ambulating well, tolerating regular diet, voiding freely, passing flatus. She was bottle-feeding without difficulty and bonding well with her son. She did not want him circumcised.. Pain was well-controlled with by mouth pain medication. She denied nausea, vomiting, fever, chills, shortness of breath, leg pain. She had moderate vaginal bleeding. On day # 1 she continued to do well with stable vital signs and stable hemoglobin at 10.2. She was discharged home on day 1 in a stable condition, as she desired early discharge. Warning signs for endometritis, mastitis, DVT/PE were reviewed with her. Post delivery activity restrictions were also reviewed with her at all her questions were answered to her satisfaction. Plans on having sterilization which will be done as an interval procedure. EXAM AT DISCHARGE: Gen.: No acute distress Heart: S1-S2 heard, regular rate and rhythm Lungs: Clear to auscultation bilaterally Abdomen: Soft, fundus firm below umbilicus Legs: No calf tenderness, trace bilateral pitting pedal edema. CONDITION AT DISCHARGE: Stable This documentation was created by [employer] milk driver software (known for inherent milk driver error). Every effort was made to assure accuracy of milk driver. Any obvious errors or omissions should be clarified with the author of the document. Reason for Visit Reason for Visit: IOL Information Peripartum Data: Delivery Method: Vaginal Physical Exam Urinary Catheter Management^: Florentino Latex: Cath Placed During This Visit: yes Reason for Continuing Indwelling Catheter: Required Immobilization for Trauma or Surgery or Anesthesia Urinary Catheter Date of Insertion: 08/20/21 Urinary Catheter Time of Insertion: 16:53 History History History 2 Term 1 Miscarriages/Ectopic 0 0 Living Children 1 Other History: 2 Para 2001 x 2 1--> 01/14/2020, male, (Srinivasa) 9lbs 11oz, full term vaginal delivery at 40 weeks and 6 days, complicated by low progesterone and required progesterone supplement (800mg per day) pills and vaginal suppository, delivery with complications-- Macrosomia, baby fractured clavical, delivered by Dr. Daniels. Delivery notes were reviewed--transverse presentation of shoulder requiring Michael suprapubic and delivery of posterior shoulder. Notes third degree perineal tear 2---> 08/20/2021, male, (trace), 8 pounds 2 ounces, full-term vaginal delivery at 39 weeks and [address] [address] Webb [place] [facility] [place] First-degree vaginal tear. No complications in the . Discharge Data Data Completed and Pending: Labs from last 24 hours 08/21/21 07:45 WBC 12.4 H RBC 3.54 L Hgb 10.2 L Hct 31.1 L MCV 87.9 MCH 28.8 MCHC 32.8 RDW 13.4 Plt Count 304 MPV 10.0 Vitals: Last Vital Signs Temp 98.5 F 08/21/21 09:29 Pulse 78 08/21/21 13:09 Resp 16 08/21/21 13:50 BP 97/55 08/21/21 13:09 Pulse Ox 97 08/20/21 16:14 Discharge Plan Discharge Patient Disposition: Home Condition: Stable Prescriptions: New docusate sodium 100 mg Capsule 100 mg PO BID PRN (Reason: constipation) Qty: 30 RF: 0 ibuprofen 800 mg tablet 800 mg PO Q8H Qty: 30 RF: 0 Continued Gummy 400 mcg-35 mg -25 mg-5 mg Tablet,Chewable See Rx Instructions .ROUTE .COMPLEX RF: 0 Discontinued ferrous sulfate 325 mg (65 mg iron) tablet,delayed release (DR/EC) 325 mg PO BID Qty: 90 RF: 2 Discharge Orders: Discharge Order (Routine); Ordered 08/21/21 Ordered By: Maxwell Jett Referrals: Maxwell Jett MD [Physician] - Discharge Diet: Regular Discharge Activity: Limit activity as instructed Patient Instructions: Opioid Safety Activity Restrictions/Additional Instructions: Pelvic rest for 6-week, no heavy lifting for 6 weeks -5-week visit in 6-week tubal ligation surgery. Discharge Attestations CUSTOMER ACQUISITION SPECIALIST Time Spent in Discharge Care*: greater than 30 min Status at Discharge: Cognitive status at discharge: cognitively intact, Behavioral status at discharge: cooperative, Coding Level of Care Code Acute School Bus Mechanic for Isauro Sullivan
== END 2021-08-21 19:45 | disposition home or self-care (01) | DRG 807 ==
LOC: OBGYN 19:02
PROVIDERS: Admitting Provider Obstetrics & Gynecology; Family Provider Family Medicine; PCP Family Medicine; Visit Provider Obstetrics & Gynecology
DX: O99.214 Obesity complicating childbirth (principal); Z37.0 Single live birth; O99.334 Smoking (tobacco) complicating childbirth; F17.210 Nicotine dependence, cigarettes, uncomplicated; O99.824 Streptococcus B carrier state complicating childbirth; O69.81X0 Labor and delivery complicated by cord around neck, without compression, not applicable or unspecified; O70.0 First degree perineal laceration during delivery; Z3A.39 39 weeks gestation of pregnancy; Z87.440 Personal history of urinary (tract) infections
CPT/HCPCS: 36415; 51702; 59025; 59409; 85025; 85027; J0290; J2795

== ENCOUNTER 2021-09-10 16:47 | Emergency (ER) | payer MEDICAID, SELFPAY ==
[2021-09-10 17:02] VITALS: BP 123/77; PULSE 101; RESP 18; TEMP 37.8; BMI 42.6
--- NOTE | 2021-09-10 17:23 | W.ED.FEVER ---
HPI - Fever General: Chief Complaint: Fever Stated Complaint: FEVER Time Seen by Provider: 09/10/21 17:09 History of Present Illness: HPI Narrative: Patient is a 25-year-old female who comes to the ED with a fever and would like to get tested for COVID-19. Patient says today she was taking a nap and she woke up and felt hot and took her temperature at home. She said the temperature was 104. She also complains of having the chills. She denies any other symptoms such as cough, shortness of breath, sore throat, nasal congestion drainage, abdominal pain, nausea/vomiting or any bladder or bowel symptoms. No known Covid positive contacts. Associated symptoms: Reports chills; Deny abdominal pain, flank pain, chest pain, diarrhea, dysuria, headache(s), nasal congestion, nausea or vomiting Review of Systems Const: Reports: fever(s) and chills; Denies: fatigue Eyes: Denies: change in vision or eye discomfort ENMT: Denies: throat pain, odynophagia, nasal discharge or nasal congestion Card: Denies: chest pain, palpitations, edema, swelling of feet/ankles, dyspnea on exertion or orthopnea Resp: Denies: dyspnea, productive cough or non-productive cough GI: Denies: abdominal pain, nausea, vomiting, diarrhea, constipation or hematochezia : Denies: flank pain, dysuria or hematuria Musc: Denies: neck pain, back pain or extremity swelling Skin/Breast: Denies: rash or new lesions Neuro: Denies: headache(s), numbness in extremities or weakness in extremities PFSH ED PFSH: Medical History No pertinent past medical history Denies diabetes, asthma, hypertension, seizures, DVT/PE PCP: Dr. Daniels Surgical History History of tonsillectomy and adenoidectomy (~2004) as a child Family History Family/Other Breast cancer Maternal Great Aunt--dx age 55 Colon cancer Maternal Great Aunt-- dx age 60 Ovarian cancer Maternal Cousin--dx age unknown Mother Diabetes Hypertension Heart disease Father Diabetes Hypertension Stroke Grandmother Diabetes Maternal Hypercholesteremia Maternal Stroke Paternal Thyroid disease Maternal Denies family history of Uterine cancer Physical Exam Const: COMMON NORMALS: no acute distress, patient oriented x3, healthy appearing and alert GENERAL APPEARANCE: cooperative and comfortable HENMT: COMMON NORMALS: normocephalic HEAD & SCALP: normocephalic MOUTH: Normal oral and palatal mucosa present THROAT: posterior oropharynx normal and uvula midline Neck/C-Spine: COMMON NORMALS: supple GENERAL: Yes normal visual inspection Resp: COMMON NORMALS: normal respiratory effort, No retractions, No use of accessory muscles and clear to auscultation bilaterally AUSCULTATION: clear to auscultation bilaterally Cardio: COMMON NORMALS: regular rate, regular rhythm, S1 normal heart sound present, S2 normal heart sound present, No gallops present (Cardio), No clicks present (Cardio), No murmurs present (Cardio) and Peripheral pulses 2+ throughout RATE: regular rate RHYTHM: regular rhythm HEART SOUNDS: S1 normal heart sound present and S2 normal heart sound present PERIPHERAL PULSES: Peripheral pulses 2+ throughout GI: COMMON NORMALS: Normal to inspection, nondistended, normoactive bowel sounds present, Soft to palpation, non-tender and no masses PALPATION: Yes Soft to palpation : COMMON NORMALS: Yes no CVA tenderness BLADDER/KIDNEY EXAM: Yes no CVA tenderness Back/Pelvis: COMMON NORMALS: no CVA tenderness Extremity: COMMON NORMALS: normal to inspection Neuro: COMMON NORMALS: patient oriented x3 and moves all extremities SENSORIUM/ORIENTATION: Yes alert SPEECH: speech normal GAIT: Yes Normal gait present Skin: GENERAL SKIN EXAM: dry skin Course Vital Signs: Vital signs: Vital Signs Temperature 100.1 F H 09/10/21 17:02 Pulse Rate 101 H 09/10/21 17:02 Respiratory Rate 18 09/10/21 17:02 Blood Pressure 123/77 09/10/21 17:02 MDM - Fever MDM Narrative: Medical decision making narrative: Patient is a 25-year-old female who comes to the ED with fever and chills. She is concerned about COVID-19 and would like to get tested. She denies any other symptoms. Her fever started today. Vitals are stable and patient had a temperature of 100.1. Exam showed a patient appears healthy and in no acute distress or pain. The rest of exam was benign. Patient was swabbed for COVID-19 and results are pending. Patient is stable for discharge home. Patient was told to contact hospital to get results in the next 36 to 48 hours. Return to ED precautions given. Follow-up with PCP in 7 to 10 days reevaluation. Patient understood and agreed with plan. Lab Data: Attestation: I reviewed the patient's lab results. Discharge Plan Discharge Patient Disposition: Home Clinical Impression: Encounter for laboratory testing for COVID-19 virus Condition: Stable Prescriptions: No Action Gummy 400 mcg-35 mg -25 mg-5 mg Tablet,Chewable See Rx Instructions .ROUTE .COMPLEX RF: 0 ibuprofen 800 mg tablet 800 mg PO Q8H Qty: 30 RF: 0 docusate sodium 100 mg Capsule 100 mg PO BID PRN (Reason: constipation) Qty: 30 RF: 0 Discharge Orders: Discharge ED (Routine); Ordered 09/10/21 Ordered By: Sushil Lam Referrals: Alicia Godwin DO [Physician] - Eduardo Daniels MD [Primary Care Provider] - Discharge Diet: Regular Discharge Activity: Increase activity as tolerated Patient Instructions: Fever in Adults (ED), COVID-19: Slow the Coronavirus Spread (ED) Activity Restrictions/Additional Instructions: Follow-up with medical provider as directed in the next 7 to 10 days for reevaluation. COVID-19 testing was done here in the ED and will be sent out to [facility]. Results should come back within the next 36 to 48 hours. [email or web address] to check on test results. Continue taking all home medications as previously prescribed. Take [id number] Tylenol or Motrin for any fevers. Make sure to drink plenty fluids and stay hydrated. Return to the ER or your medical provider if condition worsens. Please read and understand discharge instructions. Thank you for choosing [facility] for your healthcare needs today. Please realize this is an emergency room and that we are providing you with a medical screening exam and this may not be complete and all inclusive of all the testing and or work up that you may need to determine your ailment or severity of your illness. It is very important that you follow up as instructed or that you return to the Emergency Department should you have concerns or if your condition changes or worsens in any way. Coding Level of Care Code ED Osd Clerk for Isauro Fwd Exam Comprehensive
--- NOTE | 2021-09-10 17:58 | PC.NURSE ---
this pt was seen and discharged by PA out of waiting room. no nursing assessment completed on this pt.
[2021-09-12 18:13] LABS: Quest SARS-CoV-2 RNA NOT DETECTED (NOT DETECTED)
--- NOTE | 2021-09-13 18:30 | PC.NURSE ---
Informed pt of Negative COVID test
== END 2021-09-10 18:00 | disposition home or self-care (01) ==
LOC: ER 17:49
PROVIDERS: Emergency Provider Physician Assistant; PCP Family Medicine
DX: Z20.822 Contact with and (suspected) exposure to COVID-19 (principal)
CPT/HCPCS: 87635; 99282

== ENCOUNTER → 2021-09-11 11:11 | Outpatient (BNVA) | payer MEDICAID, SELFPAY | PROVIDERS: PCP Family Medicine; Visit Provider Registered Nurse Neonatal Intensive Care | DX: N39.0 Urinary tract infection, site not specified (principal) | CPT/HCPCS: 81000; 81003; 87077; 87086; 87184 ==

== ENCOUNTER → 2021-10-03 11:57 | Outpatient (BNVA) | payer MEDICAID, SELFPAY | PROVIDERS: PCP Family Medicine; Visit Provider Obstetrics & Gynecology | DX: Z20.822 Contact with and (suspected) exposure to COVID-19 (principal); Z30.2 Encounter for sterilization | CPT/HCPCS: 87635 ==

== ENCOUNTER 2021-10-04 08:06 | Day surgery (SDC) | payer MEDICAID, SELFPAY ==
[2021-10-01 13:57] VITALS: BMI 42.1
[2021-10-04] VITALS (8 sets, daily range): BP systolic 94–129; BP diastolic 46–86; PULSE 60–80; RESP 12–18; TEMP 36.1–36.2; O2SAT 94–97
[2021-10-04 08:44] LABS: OR HCG Qualitative Urine Negative (Negative)
--- NOTE | 2021-10-04 08:54 | W.PM.OPSUD ---
Surgery/Procedure H&P Update DATE OF PROCEDURE: October 04, 2021 DATE H&P PERFORMED: 09/28/21 H&P UPDATE INFORMATION: I have reviewed H&P completed within last 30 days, I have examined patient prior to procedure, No changes to prior documentation and H&P is in [facility] EMR on date indicated PREOP DIAGNOSIS: multiparity PLANNED PROCEDURE: Operation Date: 10/04/21 09:35 Proposed Procedures p Laparoscopic Tubal Fulguration 75552 Z30.2(Bilateral) - Maxwell Jett MD
[2021-10-04] MEDS: sodium chloride 0.9% 1,000 ML 30 ML IV (08:58)
[2021-10-04 09:19] LABS: Basophils % 0.6 %; Eosinophils # 0.2 10^3/uL (0.0-0.8); Eosinophils % 3.2 %; Hematocrit 40.7 % (37.0-47.0); Hemoglobin 12.8 g/dL (11.5-15.3); Lymphocytes # 1.6 10^3/uL (0.8-4.8); Lymphocytes % 22.6 %; Mean Corpuscular HGB Conc 31.4 g/dL (30.0-36.0); Mean Corpuscular Hemoglobin 27.8 pg (28.0-34.0); Mean Corpuscular Volume 88.3 fl (81-99); Mean Platelet Volume 9.6 fL (7.4-10.4); Monocytes # 0.6 10^3/uL (0.2-0.9); Monocytes % 7.6 %; Neutrophils # 4.79 10^3/uL (1.8-7.7); Neutrophils % 65.9 %; Nucleated Red Blood Cells % 0 %; Platelet Count 318 10^3/cmm (130-400); Red Blood Count 4.61 10^6/uL (4.1-5.3); Red Cell Distribution Width 13.3 % (12.1-15.1); White Blood Count 7.3 10^3/uL (4.0-10.0)
--- NOTE | 2021-10-04 09:40 | ANES.PREANE2 ---
Pre-Anesthetic Assessment Height/Weight: Height 1.55 m Weight 101.151 kg Temp Pulse Resp BP Pulse Ox 97.0 F L 80 16 129/86 96 10/04/21 08:38 10/04/21 08:38 10/04/21 08:38 10/04/21 08:38 10/04/21 08:38 Preop Diagnosis: multiparity Operation Date: 10/04/21 09:35 Proposed Procedures p Laparoscopic Tubal Fulguration 70195 Z30.2(Bilateral) - Maxwell Jett MD Familial anesthetic complications: None Was Beta Ashanti taken within 24 hours: N/A Was Clonidine taken within 24 hours: N/A Last intake: Intake Last Liquid Date 10/03/21 Last Liquid Time 21:00 Last Solid Date 10/03/21 Last Solid Time 21:00 Social Tobacco and No alcohol Exam alert, oriented x 3 and regular rate & rhythm Airway Submandibular: within normal limits Cervical ROM: within normal limits Mallampati: Class II Dentition: full Pulmonary Chronic Obstructive Pulmonary Disease Anesthetic Plan ASA status: 2 Anesthesia: General Risk of > 500 ml blood loss (7ml/kg in children): No Medications/Allergies Home Medications Medication Instructions Recorded Confirmed Last Taken Type No Known Home Medications 09/28/21 09/28/21 Unknown History Allergies Allergy/AdvReac Type Severity Reaction Status Date / Time promethazine [From Phenergan] Allergy Mild bradycardia Verified 10/03/21 14:45 pseudoephedrine Allergy ADR/ALGY-Pa Verified 10/03/21 14:45 [From Claritin-D] lpitations loratadine [From Claritin-D] AdvReac Mild tachycardia Verified 10/03/21 14:45 Current Medications Generic Name Dose Route Start Last Admin Trade Name Freq PRN Reason Stop Dose Admin Sodium Chloride 1,000 mls @ 30 mls/hr 10/04/21 08:30 10/04/21 08:58 Sodium Chloride 0.9% IV 10/05/21 08:29 30 mls/hr .Q24H ASHTYN Administration PFSH Anesthesia Medical History No pertinent past medical history Denies diabetes, asthma, hypertension, seizures, DVT/PE PCP: Dr. Daniels Surgical History History of tonsillectomy and adenoidectomy (~2004) as a child Family History Family/Other Breast cancer Maternal Great Aunt--dx age 55 Colon cancer Maternal Great Aunt-- dx age 60 Ovarian cancer Maternal Cousin--dx age unknown Mother Diabetes Hypertension Heart disease Father Diabetes Hypertension Stroke Grandmother Diabetes Maternal Hypercholesteremia Maternal Stroke Paternal Thyroid disease Maternal Denies family history of Uterine cancer Female Reproductive History Date of last menstrual period: 09/29/21 Data Anesthesia : 10/04/21 08:45 Short CBC 10/04/21 Range/Units 08:45 WBC 7.3 (4.0-10.0) 10^3/uL Hgb 12.8 (11.5-15.3) g/dL Hct 40.7 (37.0-47.0) % MCV 88.3 (81-99) fl Plt Count 318 (130-400) 10^3/cmm Neut % (Auto) 65.9 % Neut # (Auto) 4.79 (1.8-7.7) 10^3/uL Cardiac Studies: No Data to Display
[2021-10-04] MEDS: silver nitrate applicator 1 EACH TOPICAL (12:25)
--- NOTE | 2021-10-04 12:40 | PM.OP ---
Operative Report Date of procedure: October 04, 2021 OPERATIVE REPORT Date of surgery: 10/04/2021 Date of dictation: 10/04/2021 Preoperative diagnosis: Multiparity desiring permanent sterilization, morbid obesity with a BMI of 42 Postoperative diagnosis/findings: 8 to 9-week size anteverted uterus, mobile. On laparoscopy no intra-abdominal adhesions, normal tubes and ovaries bilaterally, uterus appeared normal and no other intrapelvic pathology identified.: Appears very distended. Procedure done: Laparoscopic bilateral total salpingectomy for sterilization Specimens removed/disposition of specimens: Right and left fallopian tubes sent to pathology Surgeon: Dr. Maxwell Webb Field Artillery Cannoneer: Lexus Foster Anesthesia: General endotracheal tube anesthesia Estimated blood loss: 25 ml Intravenous fluids: 600 mL of LR Urine output: 150 mL of clear urine via Florentino catheter at the end of procedure Medications: As per anesthesia records Complications: None, patient was extubated and taken to the recovery room in a stable condition. PROCEDURE: After consents were signed patient was taken to the operating room where she was placed under general anesthesia without any difficulty. She was placed supine on the table in the lithotomy position. Exam under anesthesia revealed findings noted above. She was then prepped and draped in usual sterile fashion. Weighted speculum and anterior wall retractors were placed in the vagina, cervix visualized and grasped with a tenaculum. ZUMI uterine manipulator was placed into the uterus without any difficulty. Catheter was placed, instruments were removed from the vagina and the legs were lowered. Attention was turned towards the abdomen where local anesthetic was injected in to her umbilicus. A 10 mm skin incision was made and a 10 mm port was placed through the umbilicus using an open technique--- fascia was identified and tented up with Glen clamps and directly incised using curved Mayos. Peritoneum was then bluntly entered digitally and palpation revealed no adhesions around site of entry. Causey trocar was then attached to the fascia and inflated. Once intra-abdominal entry was confirmed gas was turned on and intra-abdominal opening pressure was 2. The abdomen is insufflated to the pressure was 14. Survey of the abdomen revealed findings noted above. Two 5 mm trocar was placed into the left and right lower quadrant under direct visualization after injecting local anesthetic. The Chegginyant device was used to clamp, cauterize and then cut the mesosalpinx under the fallopian tube starting at the fimbriated end and moving towards the uterus. This was done in a sequential fashion in such a way that the entire fallopian tube was from the sidewall and the uterus. The small cornual stump was cauterized as well. This was done first on the right side and then the left side without any difficulty. The right and left fallopian tubes were taken out of the umbilical port without any difficulty. No bleeding was noted at sites of surgery. Trochars were removed under direct visualization. All instruments removed from the abdomen and the abdomen was desufflated. The fascia on the umbilical port was closed with 0 Vicryl in a continuous fashion and good reapproximation was obtained-care was taken to tent up the fascia throughout the closure. The skin incisions was closed with 4-0 Monocryl in a subcuticular fashion good reapproximation and hemostasis was noted. The incisions were dressed with Steri-Strips Telfa and Tegaderm. The ZUMI and Florentino catheter were removed and good hemostasis on cervix is achieved with silver nitrate was noted. The patient was extubated without any difficulty and taken to the recovery room in a stable condition. FOLLOW UP: Follow-up in 2 weeks and 6 weeks with surgeon MEDICATION ON DISCHARGE: Colace 100 mg by mouth every 12 hours when necessary constipation, 30 tablets, no refills Ibuprofen 800 mg by mouth every 8 hours when necessary pain, 60 tablets, no refills. Archbald 5/325 mg 1 tablet by mouth every 6 hours when necessary pain,25 tablets, no refills Continue other home medication DISPOSITION: Home in a stable condition This documentation was created by [employer] learning and development manager software (known for inherent learning and development manager error). Every effort was made to assure accuracy of learning and development manager. Any obvious errors or omissions should be clarified with the author of the document. Pre-op diagnosis: Preop Diagnosis multiparity
--- NOTE | 2021-10-04 12:45 | P.PCN_ITS ---
PACU note Narrative: VSS, Good respiratory effort, report to CENTRAL SERVICE TECH Exam: awake
--- NOTE | 2021-10-04 12:45 | PM.PACU ---
PACU note Narrative: VSS, Good respiratory effort, report to CONSTRUCTION CARPENTERS HELPER Exam: awake
[2021-10-04] MEDS: HYDROcodone-acetaminophen 5-325 mg Tablet 1 TAB PO (13:30)
== END 2021-10-04 13:46 | disposition home or self-care (01) ==
PROVIDERS: PCP Family Medicine; Visit Provider Obstetrics & Gynecology
PROC: (CPT 58670; principal; 2021-10-04 09:35)
DX: Z30.2 Encounter for sterilization (principal); E66.01 Morbid (severe) obesity due to excess calories; Z68.41 Body mass index [BMI] 40.0-44.9, adult
CPT/HCPCS: 58661; 81025; 84703; 85025; 86850; 86900; 88302; J1100; J2405; J2704; J2710; J3010; J3490; J7030

== ENCOUNTER → 2022-11-18 08:34 | Outpatient (BNVA) | payer MEDICAID, SELFPAY | PROVIDERS: PCP Clinical Nurse Specialist Adult Health; Visit Provider Clinical Nurse Specialist Adult Health | DX: R73.03 Prediabetes (principal); R73.9 Hyperglycemia, unspecified; E66.01 Morbid (severe) obesity due to excess calories | CPT/HCPCS: 85025 ==

== ENCOUNTER 2023-05-07 09:22 | Outpatient (CLI) | payer MEDICAID, SELFPAY ==
[2023-05-07 09:58] LABS: Estmated Average Glucose 111; Hemoglobin A1C 5.5 % (4.0-6.0)
== END 2023-05-07 09:23 | disposition home or self-care (01) ==
PROVIDERS: PCP Clinical Nurse Specialist Adult Health; Visit Provider Clinical Nurse Specialist Adult Health
DX: R73.03 Prediabetes (principal)
CPT/HCPCS: 36415; 83036

== ENCOUNTER → 2024-04-14 07:48 | Outpatient (BNVA) | payer MEDICAID, SELFPAY | PROVIDERS: PCP Clinical Nurse Specialist Adult Health; Visit Provider Nurse Practitioner Family | DX: R30.0 Dysuria (principal) | CPT/HCPCS: 81000 ==

== ENCOUNTER → 2024-12-11 11:47 | Outpatient (BNVA) | payer MEDICAID, SELFPAY | PROVIDERS: PCP Clinical Nurse Specialist Adult Health; Visit Provider Emergency Medicine | DX: M79.642 Pain in left hand (principal) | CPT/HCPCS: 73130 ==

== ENCOUNTER 2025-04-02 20:46 | Emergency (ER) | payer MEDICAID, SELFPAY ==
--- OUTSIDE RECORDS SUMMARY | 2025-04-01 09:00 | XMS_ITS | Encounter Summary ---
Author Organization [facility] Address [address] [place] [address] Care Team Providers Care Bioinformatics Programmer Name Role Phone Halina Dodson MD Primary Care Provider [phone]- [phone] Reason for Referral * Eval and Treat (Routine) - Closed Specialty Diagnoses / Procedures Referred By Isac t Referred To Contact Obstetrics and Gynecology Diagnoses Menorrhagia with irregular cycle Procedures DE OFFICE/OUTPATIENT ESTABLISHED MOD MDM 30 MIN DE OFFICE/OUTPATIENT NEW MODERATE MDM 45 MINUTES Halina Dodson MD [address] [address] Phone: tel: fax: [facility] [address] [place] [address] Phone: tel: fax: Referral ID Status Reason Start Date Expiration Date Visits Re quested Visits Authorized [id number] Closed 04/01/2025 04/01/2026 1 1 Reason for Visit * Reason Comments Establish Care Abdominal Pain For about a week now Encounter Details Date Type Department Care Team (Latest Contact Info) Description 04/01/2025 9:00 AM CDT Office Visit [facility] [place] [address] [phone] Halina Dodson MD [address] [phone] Gastroesophageal reflux disease without esophagitis (Primary Dx); Menorrhagia with irregular cycle; Morbid obesity with body mass index (BMI) of 40.0 or higher ([facility]); Screening for diabetes mellitus; Lipid screening; Screening for deficiency anemia Social History Tobacco Use Types Packs/Day Years Used Date Smoking Tobacco: Every Day Cigarettes 0.3 10.6 Started: 2014 Passive Smoke Exposure: Yes Tobacco Cessation:Ready to Q uit: Not Asked; Counseling Given: Not Answered Alcohol Use Standard Drinks/Week Comments No 0 (1 standard drink = 0.6 oz pur e alcohol) Comments No Sex and Gender Information Value Date Recorded Sex Assigned at Not on file 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 Gender Identity Not on file Sexual Orientation Not on file documented as of this encounter Last Filed Vital Signs Vital Sign Reading Time Taken Comments Blood Pressure 120/82 04/01/2025 8:50 AM CDT Pulse 103 04/01/2025 8:50 AM CDT Temperature 36.3 C (97.4 F) 04/01/2025 8:50 AM CDT Respiratory Rate 18 04/01/2025 8:50 AM CDT Oxygen Saturation 96% 04/01/2025 8:50 AM CDT Inhaled Oxygen Concentration - - Weight 97.6 kg (215 lb 3.2 oz) 04/01/2025 8:50 A M CDT Height 154.9 cm (5' 1 ) 04/01/2025 8:50 AM CDT Body Mass Index 40.66 04/01/2025 8:50 AM CDT documented in this encounter Patient Instructions * Attachments The following attachments cannot be sent through Care Everywhere. * GERD (Mauritian) documented in this encounter Progress Notes * Halina Dodson MD - 04/01/2025 8:52 AM CDT HISTORY OF PRESENT ILLNESS Fatimah Nj, a 29 y.o. female presents with a Chief Complaint of Establish Care and Abdominal Pain (For about a week now) Subjective Here today to establish care Abdominal issues- Instant burping, N/V/D, upper back pain when she eats or drinks Antacids and Pepcid help some but doesn't last long Water stays down H/o PCOS Menorrhagia, changes tampons q20 minutes, cycle lasts for weeks Has had tubes removed, not sure on ovaries but still has cycles Patient Active Problem List Diagnosis Code Obesity E66.9 Allergic rhinitis J30.9 Gastroesophageal reflux disease without esophagitis K21.9 Menorrhagia with irregular cycle N92.1 REVIEW OF SYSTEMS Review of Systems Constitutional: Negative for chills and fever. HENT: Negative for sore throat. Respiratory: Negative for cough and shortness of breath. All other systems reviewed and are negative. Objective PHYSICAL EXAM BP 120/82 Pulse (!) 103 Temp 97.4 ??F (36.3 ??C) (Temporal) Resp 18 Ht 5' 1 (1.549 m) Wt97.6 kg (215 lb 3.2 oz) SpO2 96% No BMI 40.66 kg/m?? Physical Exam Vitals reviewed. Constitutional: General: She is not in acute distress. Appearance: Normal appearance. HENT: Head: Normocephalic and atraumatic. Nose: Nose normal. Eyes: Extraocular Movements: Extraocular movements intact. Conjunctiva/sclera: Conjunctivae normal. Cardiovascular: Rate and Rhythm: Normal rate and regular rhythm. Heart sounds: Normal heart sounds. Pulmonary: Effort: Pulmonary effort is normal. No respiratory distress. Breath sounds: Normal breath sounds. No wheezing or rales. Abdominal: General: Bowel sounds are normal. There is no distension. Palpations: Abdomen is soft. Tenderness: There is no abdominal tenderness. Skin: General: Skin is warm and dry. Neurological: General: No focal deficit present. Mental Status: She is alert and oriented to person, place, and time. Psychiatric: Mood and Affect: Mood normal. Behavior: Behavior normal. Behavior is cooperative. No results found for any visits on 04/01/25 (from the past 24 hours). Assessment ASSESSMENT and PLAN: ICD-10-CM ICD-9-CM 1. Gastroesophageal reflux disease without esophagitis K21.9 530.81 pantoprazole (PROTONIX) 20 mg Tablet, Delayed Release (E.C.) Discussed nutrition changes, written info provided Protonix Rx short term 2. Menorrhagia with irregular cycle N92.1 626.2 AMB REFERRAL TO I O PSYCHOLOGIST 3. Morbid obesity with body mass index (BMI) of 40.0 or higher ([facility]) E66.01 278.01 tirzepatide,weight loss, (ZEPBOUND) 5 mg/0.5 mL Pen Injector BMI 40 Has lost 30 pounds already Cont Zepbound 4. Screening for diabetes mellitus Z13.1 V77.1 HEMOGLOBIN A1C HEMOGLOBIN A1C 5. Lipid screening Z13.220 V77.91 COMPREHENSIVE METABOLIC PANEL LIPID PANEL COMPREHENSIVE METABOLIC PANEL LIPID PANEL 6. Screening for deficiency anemia Z13.0 V78.1 CBC WITH DIFFERENTIAL CBC WITH DIFFERENTIAL Halina Dodson MD Outpatient Medications Marked as Taking for the 04/01/25 encounter (Office Visit) with Vazquez Dodson MD Medication Sig Dispense Refill pantoprazole (PROTONIX) 20 mg Tablet, Delayed Release (E.C.) Take 1 Tablet (20 mg) by mouth daily. 90 Tablet 0 tirzepatide, weight loss, (ZEPBOUND) 5 mg/0.5 mL Pen Injector Inject 0.5 mL (5 mg) by subcutaneous injection every 7 days. 6 mL 3 Depression Screen Positive: PHQ-2 score >= 3 or PHQ-9 score >= 9 PHQ-2 Total: 0 (04/01/2025 8:49 AM) DEPRESSION PLAN OF CARE Her depression screen was negative. (PHQ2 <3, PHQ9 <10, Drums <11) documented in this encounter Plan of Treatment Upcoming Encounters Date Type Department Care Team (Late st Contact Info) Description 04/03/2026 10:00 AM CDT Office Visit [facility] [address] [phone] Halina Dodson MD [address] [phone] Scheduled Referrals Name Type Priority Associated Diagnoses Orde r Schedule AMB REFERRAL TO I O PSYCHOLOGIST Outpatient Referral Routine Menorrhagia with irregular cycle Ordered: 04/01/2025 documented as of this encounter Procedures Procedure Name Priority Date/Time Associated Diagnosis Comments CBC WITH DIFFERENTIAL Routine 04/01/2025 9:12 AM CDT Screening for deficiency anemia HEMOGLOBIN A1C Routine 04/01/2025 9:12 AM CDT Screening for diabetes mellitus LIPID PANEL Routine 04/01/2025 9:12 AM CDT Lipid screening COMPREHENSIVE METABOLIC PANEL Routine 04/01/2025 9:12 AM CDT Lipid screening documented in this encounter Results * HEMOGLOBIN A1C (04/01/2025 9:12 AM CDT) HEMOGLOBIN A1C 5.5 <5.7 % [facility] Comment: For the purpose of screening for the presence of diabetes: <5.7% Consistent with the absence of diabetes 5.7-6.4% Consistent with increased risk for diabetes (prediabetes) > or =6.5% Consistent with diabetes This assay result is consistent with a decreased risk of diabetes. Currently, no consensus exists regarding use of hemoglobin A1c for diagnosis of diabetes in children. According to [place] Diabetes Association (ADA) guidelines, hemoglobin A1c <7.0% represents optimal control in non- diabetic patients. Different metrics may apply to specific patient populations. Standards of Medical Care in Diabetes(ADA). ESTIMATED AVERAGE GLUCOSE (MG/DL) 111 mg/dL [facility] ESTIMATED AVERAGE GLUCOSE (MMOL/L) 6.2 mmol/L [facility] Comment: FASTING:YES FASTING: YES Test Performed at: [facility] [address] [id number] Heydi Man MD Blood 04/01/2025 9:12 AM CDT 04/01/2025 9:13 AM CDT us Halina Dodson MD CHEMISTRY ORDERABLES Final Result [facility] [phone] [facility] [address] [id number] * (ABNORMAL) LIPID PANEL (04/01/2025 9:12 AM CDT) CHOLESTEROL 110 <200 mg/dL [facility] HDL 31(L) > OR = 50 mg/dL [facility] TRIGLYCERIDE 107 <150 mg/dL [facility] LDL CALCULATED 60 mg/dL (calc) [facility] Comment: Reference range: <100 Desirable range <100 mg/dL for primary prevention; <70 mg/dL for patients with CHD or diabetic patients with > or = 2 CHD risk factors. LDL-C is now calculated using the Edilson calculation, which is a validated novel method providing better accuracy than the Friedewald equation in the estimation of LDL-C. Jeremiah SS et al. ZUHAIR. 2013;310(43): 0290-6006 (http://education.Force-A/faq/INW404) CHOL/HDL RATIO 3.5 <5.0 (calc) [facility] NON-HDL CHOLESTEROL 79 <130 mg/dL (calc) [facility] Comment: For patients with diabetes plus 1 major ASCVD risk factor, treating to a non-HDL-C goal of <100 mg/dL (LDL-C of <70 mg/dL) is considered a therapeutic option. Test Performed at: [facility] [address] [place] [address] Heydi Man MD Blood 04/01/2025 9:12 AM CDT 04/01/2025 9:13 AM CDT us Halina Dodson MD CHEMISTRY ORDERABLES Final Result [facility] [phone] [facility] [address] [place] [address] * (ABNORMAL) COMPREHENSIVE METABOLIC PANEL (04/01/2025 9:12 AM CDT) GLUCOSE 89 65 - 99 mg/dL [facility] Comment: Fasting reference interval BUN 14 7 - 25 mg/dL [facility] CREATININE 0.76 0.50 - 0.96 mg/dL [facility] GFR 109 > OR = 60 mL/min/1. 73m2 [facility] BUN/CREAT RATIO SEE NOTE: 6 - 22 (calc) [facility] Comment: Not Reported: BUN and Creatinine are within reference range. SODIUM 140 135 - 146 mmol/L [facility] POTASSIUM 4.2 3.5 - 5.3 mmol/L [facility] CHLORIDE 107 98 - 110 mmol/L [facility] CO2 25 20 - 32 mmol/L [facility] CALCIUM 9.7 8.6 - 10.2 mg/dL [facility] TOTAL PROTEIN 7.7 6.1 - 8.1 g/dL [facility] ALBUMIN 4.6 3.6 - 5.1 g/dL [facility] GLOBULIN 3.1 1.9 - 3.7 g/dL (calc) [facility] ALBUMIN/GLOBULIN RATIO 1.5 1.0 - 2.5 (calc) [facility] BILIRUBIN TOTAL 0.3 0.2 - 1.2 mg/dL [facility] ALKALINE PHOSPHATASE 91 31 - 125 U/L [facility] AST 9(L) 10 - 30 U/L [facility] ALT 9 6 - 29 U/L [facility] Comment: Test Performed at: [facility] [address] Heydi Man MD Blood 04/01/2025 9:12 AM CDT 04/01/2025 9:13 AM CDT us Halina Dodson MD CHEMISTRY ORDERABLES Final Result [facility] [phone] [facility] [id number] [place] [phone] * (ABNORMAL) CBC WITH DIFFERENTIAL (04/01/2025 9:12 AM CDT) WBC 12.1(H) 3.8 - 10.8 Thousand/u L [facility] RBC 5.06 3.80 - 5.10 Million/uL [facility] HEMOGLOBIN 14.3 11.7 - 15.5 g/dL [facility] HEMATOCRIT 45.8(H) 35.0 - 45.0 % [facility] MCV 90.5 80.0 - 100.0 fL [facility] MCH 28.3 27.0 - 33.0 pg [facility] MCHC 31.2(L) 32.0 - 36.0 g/dL [facility] Comment: For adults, a slight decrease in the calculated MCHC value (in the range of 30 to 32 g/dL) is most likely not clinically significant; however, it should be interpreted with caution in correlation with other red cell parameters and the patient's clinical condition. RDW 13.4 11.0 - 15.0 % [facility] PLATELETS 442(H) 140 - 400 Thousand/u L [facility] MPV 9.6 7.5 - 12.5 fL [facility] NEUTROPHIL ABSOLUTE 8,688(H) 1,500 - 7,800 cells/uL [facility] LYMPHOCYTE ABSOLUTE 2,384 850 - 3,900 cells/uL [facility] MONOCYTE ABSOLUTE 714 200 - 950 cells/uL [facility] EOSINOPHIL ABSOLUTE 290 15 - 500 cells/uL [facility] BASOPHILS ABSOLUTE 24 0 - 200 cells/uL [facility] NEUTROPHIL 71.8 % [facility] LYMPHOCYTES 19.7 % [facility] MONOCYTE 5.9 % [facility] EOSINOPHILS 2.4 % [facility] BASOPHILS 0.2 % [facility] Comment: FASTING:YES FASTING: YES Test Performed at: [facility] [address] [address] Heydi Man MD Blood 04/01/2025 9:12 AM CDT 04/01/2025 9:13 AM CDT us Halina Dodson MD HEMATOLOGY ORDERABLES Edith l Result [facility] [phone] [facility] [address] [place] [address] documented in this encounter Visit Diagnoses Diagnosis Gastroesophageal reflux disease without esophagitis- Primary Esophageal reflux Menorrhagia with irregular cycle Excessive or frequent menstruation Morbid obesity with body mass index (BMI) of 40.0 or higher ([facility]) Screening for diabetes mellitus Lipid screening Screening for lipoid disorders Screening for deficiency anemia Screening for other and unspecified deficiency anemia documented in this encounter Care Teams Bioinformatics Programmer Relationship Specialty Start Date End Date Halina Dodson MD [address] [place] [phone] PCP - General Family Practice 04/01/25 documented as of this encounter
--- OUTSIDE RECORDS SUMMARY | 2025-04-02 20:50 | XMS_ITS | Encounter Summary ---
Author Organization [facility] Address [address] [place] [address] Care Team Providers Care Senior Sales Engineer Name Role Phone Divya Thomas MD Primary Care Provider +1- [phone] Encounter Details Date Type Department Care Team (Late st Contact Info) Description 05/06/2009 Emergency [facility] [address] 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
--- OUTSIDE RECORDS SUMMARY | 2025-04-02 20:50 | XMS_ITS | Clinical Summary ---
Author Organization [facility] Address [address] [place] [address] Care Team Providers Care Paper Reeler Name Role Phone Divya Thomas MD Primary Care Provider [phone]- [phone] Allergies Active Allergy Reactions Criticality Noted Date Comments Loratadine-Pseudoephedrine Unknown 9 Promethazine Unknown 03/02/2009 Medications acetaminophen (TYLENOL) 325 mg Oral tablet Take 325 mg by mouth every 4 hours as needed. Active fluticasone (FLONASE) 50 mcg/Actuation Both Nostril SpSn Administer 2 Sprays in each nostril daily. 1 Bottle 3 0 Active ibuprofen (MOTRIN) 800 mg Oral tablet Take 800 mg by mouth every 6 hours as needed. Active MULTIVITAMINS WITH FLUORIDE (MULTI-VITAMIN ORAL) Take by mouth. Teen vitamin Active Active Problems Problem Noted Date Diagnosed Date Obesity 02/07/2010 Allergic rhinitis 02/07/2010 Immunizations Immunization Administration Dates Next Due (M-M-R II/PRIORIX)(12 MO UP) MEASLES, MUMPS AND RUBELLA VIRUS VACCINE, 0.5 ML IM/SUBCUT 02/28/2005,12/23/2001,06/21/1998 (TDVAX)(7 YRS UP) TETANUS AN D DIPHTHERIA TOXOIDS, ADSORBED (2 LF OF TETANUS TOXOID AND 2 LF OF DIPHTHERIA TOXOID), 0.5ML (PF), IM 02/28/2005 Dt Dtp Dtap Vaccine 12/23/2001, 8,07/05/1997,1996,02/28/1997 HIB, Unspecified Formulation 06/21/1998, 07/05/1997,05/02/1997,1996 Hepatitis B Vaccine 07/05/1997,01/19/1997,1996 IPV/OPV 02/28/2005, 2,07/05/1997,1996,02/28/1997 Influenza Vaccine Split 3+ Yrs IM 05/01/2009 Family History Medical History Relation Name Comments Diabetes Father Nahum Diabetes Maternal Grandmother Shelli Thyroid Disease Maternal Grandmother Shelli Diabetes Mother Carolee Hypertension Mother Carolee Heart Disease Paternal Grandfather Severo Relation Name Status Comments Father Nahum Alive Maternal Grandfather Maternal Grandmother Shelli Alive Mother Carolee Alive Paternal Grandfather Severo Alive Paternal Grandmother Mare Alive Social History Tobacco Use Types Packs/Day Years Used Date Smoking Tobacco: Passive Smo ke Exposure - Never Smoker Alcohol Use Standard Drinks/Week Comments No 0 (1 standard drink = 0.6 oz pur e alcohol) Comments No Sex and Gender Information Value Date Recorded Sex Assigned at Not on file 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 Gender Identity Not on file Sexual Orientation Not on file Last Filed Vital Signs Vital Sign Reading Time Taken Comments Blood Pressure 104/62 10/17/2010 3:31 PM BOOM MASTER Pulse 82 10/17/2010 3:31 PM BOOM MASTER Temperature 36.4 C (97.5 F) 10/17/2010 3:31 PM BOOM MASTER Respiratory Rate 20 10/17/2010 3:31 PM BOOM MASTER Oxygen Saturation 98% 10/17/2010 3:31 PM BOOM MASTER Inhaled Oxygen Concentration - - Weight 91.6 kg (202 lb) 10/17/2010 3:31 PM BOOM MASTER Height 151.1 cm (4' 11.5 ) 01/08/2010 4:24 PM CD T Body Mass Index - - Plan of Treatment Health Maintenance Due Date Last Done Comments DTAP/TDAP/TD VACCINES (6 - Tdap) 12/16/2007 02/28/2005, 12/23/2001, 06/21/1998, Additional history exists HPV VACCINES (1 - 3-dose series) 12/16/2011 CERVICAL CANCER SCREENING 2017 HPV/Cotest (21-29) 2017 PAP SMEAR 2017 INFLUENZA VACCINE (#1) 2025 05/01/2009 HEPATITIS B VACCINES Completed 07/05/1997, 01/19/1997, 1996 Insurance [email or web address] SFD PPO SFD PPO Care Teams Paper Reeler Relationship Specialty Start Date End Date Divya Thomas MD PCP - General Family Practice 01/08/10
--- OUTSIDE RECORDS SUMMARY | 2025-04-02 20:50 | XMS_ITS | Encounter Summary ---
Author Organization [facility] Address [address] [place] [address] Care Team Providers Care Vein Access Technician Name Role Phone Divya Thomas MD Primary Care Provider [phone]- [phone] Encounter Details Date Type Department Care Team (Late st Contact Info) Description 06/23/2007 Outpatient Historical [address] [phone] Nilo Ruiz PA [address] [place] [phone] Acute Pharyngitis (Primary Dx); Allergic Rhinitis, Cause Unspecified Social History Tobacco Use Types Packs/Day Years Used Date Smoking Tobacco: Never Assessed Comments Unknown Sex and Gender Information Value Date Recorded Sex Assigned at Not on file 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
--- OUTSIDE RECORDS SUMMARY | 2025-04-02 20:50 | XMS_ITS | Clinical Summary ---
Author Organization [facility] Address [address] [facility] Attn: Epic Prelude ADT [place] [address] Care Team Providers Care Grocery Team Member Name Role Phone Halina Dodson MD Primary Care Provider +1- [phone] Allergies Active Allergy Reactions Criticality Noted Date Comments Loratadine-Pseudoephedrine Unknown 9 Promethazine Unknown 03/02/2009 Medications pantoprazole (PROTONIX) 20 mg Tablet, Delayed Release (E.C.)Indicatio ns:Gastroesopha geal reflux disease without esophagitis Take 1 Tablet (20 mg) by mouth daily. 90 Tablet 04/01/20 25 Active tirzepatide, weight loss, (ZEPBOUND) 5 mg/0.5 mL Pen InjectorIndicat ions:Morbid obesity with body mass index (BMI) of 40.0 or higher (CMS/[facility]) Inject 0.5 mL (5 mg) by subcutaneous injection every 7 days. 6 mL 3 04/01/20 25 Active tirzepatide, weight loss, (ZEPBOUND) 5 mg/0.5 mL Pen Injector Inject 5 mg by subcutaneous injection every 7 days. 025 Discontin ued(Reord er) Active Problems Problem Noted Date Diagnosed Date Gastroesophageal reflux disease without esophagi tis 04/01/2025 Menorrhagia with irregular cycle 04/01/2025 Obesity 02/07/2010 Allergic rhinitis 02/07/2010 Encounters Date Type Department Care Team Description 04/01/2025 9:00 AM CDT Office Visit [address] [phone] Halina Dodson MD Gastroesophageal reflux disease without esophagitis (Primary Dx); Menorrhagia with irregular cycle; Morbid obesity with body mass index (BMI) of 40.0 or higher ([facility]/HCC); Screening for diabetes mellitus; Lipid screening; Screening for deficiency anemia from Last 3 Months Immunizations Immunization Administration Dates Next Due (M-M-R [...] on file Legal Sex Female 7:23 AM SKIN GRADER Gender Identity Not on file Sexual Orientation [...] Mass Index 40.66 04/01/2025 8:50 AM CDT Plan of Treatment Upcoming Encounters Date Type Department Care Team (Late st Contact Info) Description 04/03/2026 10:00 AM CDT Office Visit [facility] [address] [phone] Halina Dodson MD [address] [phone] Health Maintenance Due Date Last Done Comments DTAP/TDAP/TD VACCINES (6 - Tdap) 12/16/2007 02/28/2005, 12/23/2001, 06/21/1998, Additional history exists HPV VACCINES (1 - 3-dose series) 12/16/2011 Preventative Visit-Managed Medicaid 12/16/2015 03/02/2009 CERVICAL CANCER SCREENING 2017 HPV/Cotest (21-29) 2017 PAP SMEAR 2017 INFLUENZA VACCINE (#1) 2025 05/01/2009 HEPATITIS B VACCINES Completed 07/05/1997, 07/05/1997, 01/19/1997, Additional history exists Procedures Procedure Name Priority Date/Time Associated Diagnosis Comments HEMOGLOBIN A1C Routine 04/01/2025 9:12 AM CDT Screening for diabetes mellitus LIPID PANEL Routine 04/01/2025 9:12 AM CDT Lipid screening COMPREHENSIVE METABOLIC PANEL Routine 04/01/2025 9:12 AM CDT Lipid screening CBC WITH DIFFERENTIAL Routine 04/01/2025 9:12 AM CDT Screening for deficiency anemia from Last 3 Months Results * (ABNORMAL) CBC WITH DIFFERENTIAL (04/01/2025 9:12 AM CDT) [facility] WBC 12.1(H) 3.8 - 10.8 Thousand/u L [...] Comment: FASTING:YES FASTING: YES Test Performed at: [facility] [address] [facility] [place] [address] Heydi Man MD Blood 04/01/2025 9:12 AM CDT 04/01/2025 9:13 AM CDT us Halina Dodson MD HEMATOLOGY ORDERABLES Edith l Result [facility] [phone] [facility] [place] [address] * HEMOGLOBIN A1C (04/01/2025 9:12 AM CDT) HEMOGLOBIN A1C 5.5 <5.7 % [facility] Comment: For the purpose of screening for the presence of diabetes: <5.7% Consistent with the absence of diabetes 5.7-6.4% Consistent with increased risk for diabetes (prediabetes) > or =6.5% Consistent with diabetes This assay result is consistent with a decreased risk of diabetes. Currently, no consensus exists regarding use of hemoglobin A1c for diagnosis of diabetes in children. According to [place] Diabetes [employer] (ADA) guidelines, hemoglobin A1c <7.0% represents optimal control in non- diabetic patients. Different metrics may apply to specific patient populations. Standards of Medical Care in Diabetes(ADA). ESTIMATED AVERAGE GLUCOSE (MG/DL) 111 mg/dL [facility] ESTIMATED AVERAGE GLUCOSE (MMOL/L) 6.2 mmol/L [facility] Comment: FASTING:YES FASTING: YES Test Performed at: [facility] [place] [address] Heydi Man MD Blood 04/01/2025 9:12 AM CDT 04/01/2025 9:13 AM CDT us Halina Dodson MD CHEMISTRY ORDERABLES Final Result [facility] [phone] [facility] [place] [place] [address] * (ABNORMAL) LIPID PANEL (04/01/2025 9:12 AM CDT) CHOLESTEROL 110 <200 mg/dL [facility] HDL 31(L) > OR = 50 [...] equation in the estimation of LDL-C. Jeremiah REYES et al. ZUHAIR. 2013;310(19): 6488-7091 (http://education.AskYou/faq/OEP158) CHOL/HDL RATIO 3.5 <5.0 (calc) [facility] NON-HDL CHOLESTEROL 79 <130 mg/dL (calc) [facility] Comment: For patients with diabetes plus 1 major ASCVD risk factor, treating to a non-HDL-C goal of <100 mg/dL (LDL-C of <70 mg/dL) is considered a therapeutic option. Test Performed at: [facility] [address] [place] [address] [place] [address] Heydi Man MD Blood 04/01/2025 9:12 AM CDT 04/01/2025 9:13 AM CDT us Halina Dodson MD CHEMISTRY ORDERABLES Final Result [facility] [phone] [facility] [address] [place] [address] * (ABNORMAL) COMPREHENSIVE METABOLIC PANEL (04/01/2025 9:12 AM CDT) GLUCOSE 89 65 - 99 mg/dL [facility] Comment: Fasting reference interval BUN 14 7 - 25 mg/dL [facility] CREATININE 0.76 0.50 - 0.96 mg/dL [...] [facility] Comment: Test Performed at: [facility] [address] [address] [address] Heydi Man MD Blood 04/01/2025 9:12 AM CDT 04/01/2025 9:13 AM CDT Halina Dodson MD CHEMISTRY ORDERABLES Final Result [facility] [phone] [facility] [address] [address] [phone] from Last 3 Months Insurance [facility] [employer] MEDICAID Care Teams Grocery Team Member Relationship Specialty Start Date End Date Halina Dodson MD [address] [place] [phone] PCP - General Family Practice 04/01/25
[2025-04-02 21:31] VITALS: BP 120/79; PULSE 97; RESP 17; TEMP 36.8; O2SAT 98; BMI 40.6
[2025-04-02 22:40] LABS: Hematocrit 46.2 % (36-47); Hemoglobin 15.50 g/dL (11.27-16.99); Mean Corpuscular HGB Conc 33.5 g/dL (30-55); Mean Corpuscular Hemoglobin 28.1 pg (27-33); Mean Corpuscular Volume 83.8 fl (85-98); Nucleated Red Blood Cells % 0 %; Platelet Count 494 10^3/cmm (157-399); Red Blood Count 5.51 10^6/uL (3.85-5.65); White Blood Count 17.94 10^3/uL (3.29-11.43)
[2025-04-02 22:59] LABS: Alanine Aminotransferase 10 U/L (0-33); Albumin Level 4.6 g/dL (3.5-5.2); Alkaline Phosphatase 128 U/L (35-105); Anion Gap 18.9 (5-19); Aspartate Amino Transferase 8 U/L (0-32); Blood Urea Nitrogen 17 mg/dL (6-20); Calcium 9.8 mg/dL (8.5-10.5); Carbon Dioxide 21 mmol/L (22-29); Chloride 102 mmol/L (98-107); Creatinine Clr Calc Pharmacy 89.4996; Globulin 2.7 g/dL (1.3-4.6); Glucose 122 mg/dL (65-115); Osmolality Calculated 289 mOsm/kg (285-295); Potassium 3.9 mmol/L (3.5-5.1); Sodium 138 mmol/L (136-145); Total Protein 7.3 g/dL (6.6-8.7)
[2025-04-02] MEDS: metoclopramide 5 mg/mL SDV 2 mL IVP (23:47)
[2025-04-02 23:59] LABS: Glucose Urine UA Negative (Normal); Nitrate Urine Negative (Negative)
[2025-04-03 00:41] LABS: Specific Gravity, Urine 1.038 (1.005-1.030)
[2025-04-03 00:43] LABS: UA Manual Slide Review YES; UA Slide Review UA Slide Review Perf
[2025-04-03 00:44] LABS: Add Urine Microscopic? YES
[2025-04-03 00:45] LABS: Universal Test for UA Present (0)
--- NOTE | 2025-04-03 01:12 | ED_ITS ---
Documented by User: JARET Willard 04/03/25 01:14 HPI - Abdominal Pain 2 General: Chief Complaint: Abdominal Pain Stated Complaint: vomitting/diaherra, abdominal pain Time Seen by Provider: 04/02/25 23:26 Source: patient Mode of arrival: ambulatory Limitations: no limitations History of Present Illness: Patient is a 29-year-old female who presents the emergency department complaining of right upper quadrant abdominal pain radiating into the back beginning about a week ago. She has never had this pain before, states she has never had issues with her gallbladder. She is unable to keep down any food or drink secondary to vomiting, also reports that she has been having diarrhea. Notes 2 episodes of vomiting today, but overall has had 2 episodes to count over the past week. Reports that her diarrhea appears watery. Does not report any other specific alleviating or exacerbating factors. Denies urinary symptoms. No fever. No blood in her stool or vomit. No chest pain or shortness of breath. Vitals stable at this time. History of hysterectomy but still has her appendix and gallbladder. MD elicited complaint: abdominal pain Pertinent past history: none Onset (ago): week(s) Pain Consistency: constant Location: RUQ Severity: severe Radiation: back Associated Symptoms: Reports diarrhea, nausea and vomiting; Denies bloating, change in stool character, chills, constipation, dysuria, fever(s) and hematochezia Related Data Previous Rx's ?Medication ?Instructions ?Recorded cetirizine 10 mg tablet (Zyrtec) 10 mg PO DAILY #30 ta bs 05/07/24 fluticasone propionate 50 2 spray intranasal DAILY #16 grams 05/07/24 mcg/actuation nasal spray,suspension (Flonase Allergy Relief) ibuprofen 800 mg tablet 800 mg PO Q8H PRN pain #60 t abs 05/07/24 ibuprofen 600 mg tablet 600 mg PO Q8H PRN pain #30 t abs 12/11/24 prednisone 20 mg tablet 60 mg (3 x 20 mg) PO DAILY 5 days 12/11/24 #15 tabs hydrocodone 5 mg-acetaminophen 325 1 tab PO Q8H PRN pa in #7 tabs 04/03/25 mg tablet ondansetron 4 mg disintegrating 4 mg PO Q6H PRN nausea and 04/03/25 tablet vomiting #14 tabs sulfamethoxazole 800 1 tab PO BID #10 tabs mg-trimethoprim 160 mg tablet (Bactrim DS) Allergies Allergy/AdvReac Type Severity Reaction Status Date / Time promethazine (From Phenergan) Allergy Mild bradycardia Verified 12/11/24 11:34 pseudoephedrine (From Allergy ADR/ALGY-Pa Verified 12/11/24 11:34 Claritin-D) lpitations loratadine (From Claritin-D) AdvReac Mild tachycardia Verified 12/11/24 11:34 Review of Systems 2 General: Reports: 10 or more systems reviewed and unremarkable except in HPI and below Const: Denies: fever(s), chills, change in appetite, change in weight or diaphoresis ENMT: Denies: throat pain or hoarseness Card: Denies: chest pain, palpitations or lightheadedness Resp: Denies: dyspnea, productive cough or wheezing GI: Reports: abdominal pain, nausea, vomiting and diarrhea; Denies: constipation, bloating, change in stool character or hematochezia : Denies: flank pain, difficulty voiding, dysuria, urinary frequency or urinary urgency Musc: Denies: neck pain or back pain Skin/Breast: Denies: rash or new lesions Neuro: Denies: headache(s) or dizziness PFSH ED 2 PFSH: Medical History Morbid obesity Type 2 diabetes mellitus without complications previous A1C 11% Pre-diabetes Surgical History Status post tubal ligation 10/04/2021---laparoscopic bilateral total salpingectomy for sterilization by Dr. Webb at [facility]. Pathology showed------> bilateral fallopian tubes with full cross-section and no malignancy History of tonsillectomy and adenoidectomy (~2004) as a child Family History Family/Other Breast cancer Maternal Great Aunt--dx age 55 Colon cancer Maternal Great Aunt-- dx age 60 Ovarian cancer Maternal Cousin--dx age unknown Mother Diabetes Hypertension Heart disease Father Diabetes Hypertension Stroke Grandmother Diabetes Maternal Hypercholesteremia Maternal Stroke Paternal Thyroid disease Maternal Denies family history of Uterine cancer Social History Smoking and tobacco/nicotine status: current every day tobacco/nicotine user Physical Exam 2 Const: COMMON NORMALS: no acute distress, average body habitus, patient oriented x3, no limitations, healthy appearing, alert and well nourished G ENERAL APPEARANCE: cooperative and comfortable ORIENTATION/CONSCIOUSNESS: Yes awake Eye: COMMON NORMALS: Equal, round and reactive pupils present, EOMs intact bilaterally, conjunctivae normal and normal visual dodd by confrontation C ONJUNCTIVA: Yes conjunctivae normal PUPIL: Yes Equal, round and reactive pupils present Neck/C-Spine: COMMON NORMALS: full ROM, supple, no meningeal signs and no JVD Resp: COMMON NORMALS: normal respiratory effort, No retractions, No use of accessory muscles and clear to auscultation bilaterally AUSCULTATION: clear to auscultation bilaterally, no crackles, no rales, no rhonchi and no wheezes Cardio: COMMON NORMALS: no JVD, regular rate, regular rhythm, S1 normal heart sound present, S2 normal heart sound present, No gallops present (Cardio), No clicks present (Cardio), No murmurs present (Cardio), No rub (Cardio) and Peripheral pulses 2+ throughout RATE: regular rate RHYTHM: regular rhythm HEART SOUNDS: S1 normal heart sound present and S2 normal heart sound present PERIPHERAL PULSES: Peripheral pulses 2+ throughout GI: COMMON NORMALS: Normal to inspection, nondistended, normoactive bowel sounds present, Soft to palpation, No hepatosplenomegaly present and no masses AUSCULTATION: Yes normoactive bowel sounds PALPATION: Yes Soft to palpation, Yes Tenderness to palpation present (GI) Details: RUQ, No Guarding due to palpation present (GI), No Rigid due to palpation and Yes No hepatosplenomegaly present RECTAL EXAM: deferred OTHER: Positive Lemus sign : COMMON NORMALS: Yes no CVA tenderness BLADDER/KIDNEY EXAM: Yes no CVA tenderness Back/Pelvis: COMMON NORMALS: no CVA tenderness Extremity: COMMON NORMALS: normal to inspection and full ROM Neuro: COMMON NORMALS: patient oriented x3, moves all extremities, no focal motor deficits and no sensory deficits noted SENSORIUM/ORIENTATION: Yes alert MENINGEAL SIGNS: Yes no meningeal signs Psych: COMMON NORMALS: mental status grossly normal, cooperative and speech normal SPEECH: Yes normal speech Skin: COMMON NORMALS: no rashes or lesions noted GENERAL SKIN EXAM: no rashes or lesions noted Course 2 Vital Signs: Vital signs: Vital Signs Temperature 98.2 F 04/02/25 21:31 Pulse Rate 89 04/03/25 03:43 Respiratory Rate 17 04/03/25 03:43 Blood Pressure 120/71 04/03/25 03:43 Pulse Oximetry 97 04/03/25 03:43 Oxygen Delivery Me thod Room Air 04/02/25 21:31 MDM - Abdominal Pain Medical Decision Making Patient presenting with right upper quadrant pain radiating into the back, that has become more constant over the past week. She still is her gallbladder, denies ever having issues with this in the past. Has been having nausea vomiting and diarrhea associated with this. Leukocytosis with her labs, left shift present. Urine appears to be positive for UTI. Ultrasound is currently pending at this time, as care of patient will be transferred over to Dr. Angulo at shift change. Patient has received Reglan and Toradol through IV and has been stable throughout ED course thus far. Lab Data 04/02/25 22:31 04/02/25 22:31 Labs/Radiology: Radiology Impressions Abdomen/Pelvis CT 04/03/25 01:51 IMPRESSION: 1. Fluid is noted throughout the colon which can be seen in diarrheal illness. 2. No other evidence of acute intra-abdominal or pelvic process. Gallbladder Ultrasound 04/03/25 23:30 IMPRESSION: Unremarkable duplex of the portal vein. IMPRESSION: 1. Fatty liver. 2. Otherwise unremarkable right upper quadrant ultrasound. Laboratory Results WBC 17.94 10^3/uL (3.29-11.43) H 04/02/25 22:31 RBC 5.51 10^6/uL (3.85-5.65) 04/02/25 22:31 Hgb 15.50 g/dL (11.27-16.99) 04/02/25 22:31 Hct 46.2 % (36-47) 04/02/25 22:31 MCV 83.8 fl (85-98) L 04/02/25 22:31 MCH 28.1 pg (27-33) 04/02/25 22:31 MCHC 33.5 g/dL (30-55) 04/02/25: RDW 13.4 % (12.1-15.1) 04/02/25: Plt Count 494 10^3/cmm (157-399) H 04/02/25 22: MPV 9.6 fL (7.4-10.4) 04/02/25: Neut % (Auto) 73.3 % 04/02/25: Lymph % (Auto) 17.6 % 04/02/25: Sampson % (Auto) 5.7 % 04/02/25: Eos % (Auto) 2.8 % 04/02/25: Baso % (Auto) 0.1 % 04/02/25: Neut # (Auto) 13.14 10^3/uL (1.8-7.7) H 04/02/25: Lymph # (Auto) 3.2 10^3/uL (0.8-4.8) 04/02/25: Sampson # (Auto) 1.0 10^3/uL (0.2-0.9) H 04/02/25: Eos # (Auto) 0.5 10^3/uL (0.0-0.8) 04/02/25: Baso # (Auto) 0.0 10^3/uL (0.0-0.1) 04/02/25: Nucleated RBC % (auto) 0 % 04/02/25: Nucleated RBCs # 0.0 /100WBC 04/02/25 22: Sodium 138 mmol/L (136-145) 04/02/25: Potassium 3.9 mmol/L (3.5-5.1) 04/02/25: Chloride 102 mmol/L (98-107) 04/02/25: Carbon Dioxide 21 mmol/L (22-29) L 04/02/25: Anion Gap 18.9 (5-19) 04/02/25: BUN 17 mg/dL (6-20) 04/02/25: Creatinine 1.0 mg/dL (0.5-0.9) H 04/02/25 22:31 GFR Calculation 66.0 mL/min (90-130) L 04/02/25 22: Glucose 122 mg/dL (65-115) H 04/02/25 22: Calculated Osmolality 289 mOsm/kg (285-295) 04/02/25 22: Calcium 9.8 mg/dL (8.5-10.5) 04/02/25 22: Total Bilirubin 0.4 mg/dL (0.15-1.2) 04/02/25 22: AST 8 U/L (0-32) 04/02/25: ALT 10 U/L (0-33) 04/02/25: Alkaline Phosphatase 128 U/L (35-105) H 04/02/25 22: Total Protein 7.3 g/dL (6.6-8.7) 04/02/25: Albumin 4.6 g/dL (3.5-5.2) 04/02/25 22: Globulin 2.7 g/dL (1.3-4.6) 04/02/25 22: Urine Color Dark yellow (Yellow) A 04/02/25 23:35 Urine Appearance Turbid (CLEAR) A 04/02/25 23:35 Urine pH 5.5 (5-7) 04/02/25 23:35 Ur Specific [place] 1.038 (1.005-1.030) H 04/02/25 23:35 Urine Protein 2+ (Negative) A 04/02/25 23:35 Urine Glucose (UA) Negative (Normal) 04/02/25 23:35 Urine Ketones 1+ (Negative) H 04/02/25 23:35 Urine Blood Negative (Negative) 04/02/25 23:35 Urine Nitrate Negative (Negative) 04/02/25 23:35 Urine Bilirubin 1+ (Negative) H 04/02/25 23:35 Urine Urobilinogen 1.0 mg/dL (Negative) 04/02/25 23:35 Ur Leukocyte Esterase 2+ (Negative) A 04/02/25 23:35 Urine RBC None /hpf (0-2) 04/02/25 23:35 Urine WBC 10-15 /hpf (0-5) H 04/02/25 23:35 Ur Squamous Epith Cells 15-25 /hpf (0-5) H 04/02/25 23:35 Amorphous Sediment Not Reportable 04/02/25 23:35 Urine Bacteria 4+ /hpf (NONE) H 04/02/25 23:35 Hyaline Casts 3-5 /lpf 04/02/25 23:35 All radiology interpretation(s) finalized by discharge Discharge Plan Discharge Patient Disposition: Home Clinical Impression: Gastroenteritis, UTI (urinary tract infection) Condition: Stable Prescriptions: New sulfamethoxazole-trimethoprim [Bactrim DS] 800-160 mg tablet 1 tab PO BID Qty: 10 0RF hydrocodone-acetaminophen 5-325 mg tablet 1 tab PO Q8H PRN (Reason: pain) Qty: 7 0RF ondansetron 4 mg tablet,disintegrating 4 mg PO Q6H PRN (Reason: nausea and vomiting) Qty: 14 0RF No Action cetirizine [Zyrtec] 10 mg tablet 10 mg PO DAILY Qty: 30 0RF ibuprofen 800 mg tablet 800 mg PO Q8H PRN (Reason: pain) Qty: 60 0RF fluticasone propionate [Flonase Allergy Relief] 50 mcg/actuation spray,suspension 2 spray intranasal DAILY Qty: 16 0RF Rx Instructions: administer into each nostril prednisone 20 mg tablet 60 mg PO DAILY 5 Days Qty: 15 0RF ibuprofen 600 mg tablet 600 mg PO Q8H PRN (Reason: pain) Qty: 30 0RF Discharge Orders: Discharge ED (Routine); Ordered 04/03/25 Ordered By: Fco Angulo Referrals: Kirk Starr, MEASUREMENT OPERATOR [Primary Care Provider, Family Practice] - 1-3 days Patient Instructions: Urinary Tract Infection in Women (ED), Gastroenteritis (ED), Opioid Safety, Pain Management, Patient Portal & Mesfin Instructions Activity Restrictions/Additional Instructions: Follow a liquid diet for the next 24 hours. If no vomiting, you may increase from there. Take nausea medication scheduled for the first 24 hours every 4 hours while awake. Then you may use it as you needed. Pain medication for significant pain. Return for fever greater than 100 despite 2-3 doses of antibiotics, vomiting liquids or medications despite treatment, other concerning symptoms. Print Language: Slovak Coding Level of Care Code ED Online Content Editor for Chg Fwd Documented by User: Fco Angulo, DO 04/03/25 15:30 HPI - Abdominal Pain 2 General: Chief Complaint: Abdominal Pain Stated Complaint: vomitting/diaherra, abdominal pain Time Seen by Provider: 04/02/25 23:26 Related Data Previous Rx's ?Medication ?Instructions ?Recorded cetirizine 10 mg tablet (Zyrtec) 10 mg PO DAILY #30 ta bs 05/07/24 fluticasone propionate 50 2 spray intranasal DAILY #16 grams 05/07/24 mcg/actuation nasal spray,suspension (Flonase Allergy Relief) ibuprofen 800 mg tablet 800 mg PO Q8H PRN pain #60 t abs 05/07/24 ibuprofen 600 mg tablet 600 mg PO Q8H PRN pain #30 t abs 12/11/24 prednisone 20 mg tablet 60 mg (3 x 20 mg) PO DAILY 5 days 12/11/24 #15 tabs hydrocodone 5 mg-acetaminophen 325 1 tab PO Q8H PRN pa in #7 tabs 04/03/25 mg tablet ondansetron 4 mg disintegrating 4 mg PO Q6H PRN nausea and 04/03/25 tablet vomiting #14 tabs sulfamethoxazole 800 1 tab PO BID #10 tabs mg-trimethoprim 160 mg tablet (Bactrim DS) Allergies Allergy/AdvReac Type Severity Reaction Status Date / Time promethazine (From Phenergan) Allergy Mild bradycardia Verified 12/11/24 11:34 pseudoephedrine (From Allergy ADR/ALGY-Pa Verified 12/11/24 11:34 Claritin-D) lpitations loratadine (From Claritin-D) AdvReac Mild tachycardia Verified 12/11/24 11:34 PFSH ED 2 PFSH: Medical History Morbid obesity Type 2 diabetes mellitus without complications previous A1C 11% Pre-diabetes Surgical History Status post tubal ligation 10/04/2021---laparoscopic bilateral total salpingectomy for sterilization by Dr. Webb at [facility]. Pathology showed------> bilateral fallopian tubes with full cross-section and no malignancy History of tonsillectomy and adenoidectomy (~2004) as a child Family History Family/Other Breast cancer Maternal Great Aunt--dx age 55 Colon cancer Maternal Great Aunt-- dx age 60 Ovarian cancer Maternal Cousin--dx age unknown Mother Diabetes Hypertension Heart disease Father Diabetes Hypertension Stroke Grandmother Diabetes Maternal Hypercholesteremia Maternal Stroke Paternal Thyroid disease Maternal Denies family history of Uterine cancer Social History Smoking and tobacco/nicotine status: current every day tobacco/nicotine user Course 2 Vital Signs: Vital signs: Vital Signs Temperature 98.2 F 04/02/25 21:31 Pulse Rate 89 04/03/25 03:43 Respiratory Rate 17 04/03/25 03:43 Blood Pressure 120/71 04/03/25 03:43 Pulse Oximetry 97 04/03/25 03:43 Oxygen Delivery Me thod Room Air 04/02/25 21:31 MDM - Abdominal Pain Medical Decision Making Patient presenting with right upper quadrant pain radiating into the back, that has become more constant over the past week. She still is her gallbladder, denies ever having issues with this in the past. Has been having nausea vomiting and diarrhea associated with this. Leukocytosis with her labs, left shift present. Urine appears to be positive for UTI. Ultrasound is currently pending at this time, as care of patient will be transferred over to Dr. Angulo at shift change. Patient has received Reglan and Toradol through IV and has been stable throughout ED course thus far. Patient care transitioned from physician's customer service assistant to attending physician during encounter. Initial concern for gallbladder pathology ruled out with negative ultrasound. Right upper quadrant ultrasound: Gallbladder negative for pathology. CT scan of abdomen: Demonstrates fluid throughout the colon, findings consistent with colitis or gastroenteritis. 1. Colitis/Gastroenteritis: CT imaging reveals fluid throughout colon consistent with inflammatory process. Will provide symptomatic treatment and ensure adequate hydration. Patient to follow up with primary care physician for ongoing management. 2. Urinary Tract Infection: Confirmed on urinalysis. Patient will be discharged on appropriate antibiotic therapy. 3. Disposition: Patient stable for discharge home with symptomatic care, antibiotic treatment, and primary care follow-up as outlined above. Lab Data 04/02/25 22:31 04/02/25 22: Labs/Radiology: Radiology Impressions Abdomen/Pelvis CT 04/03/25 01:51 IMPRESSION: 1. Fluid is noted throughout the colon which can be seen in diarrheal illness. 2. No other evidence of acute intra-abdominal or pelvic process. Gallbladder Ultrasound 04/03/25 23:30 IMPRESSION: Unremarkable duplex of the portal vein. IMPRESSION: 1. Fatty liver. 2. Otherwise unremarkable right upper quadrant ultrasound. Laboratory Results WBC 17.94 10^3/uL (3.29-11.43) H 04/02/25 22: RBC 5.51 10^6/uL (3.85-5.65) 04/02/25: Hgb 15.50 g/dL (11.27-16.99) 04/02/25 22: Hct 46.2 % (36-47) 04/02/25: MCV 83.8 fl (85-98) L 04/02/25: MCH 28.1 pg (27-33) 04/02/25: MCHC 33.5 g/dL (30-55) 04/02/25: RDW 13.4 % (12.1-15.1) 04/02/25: Plt Count 494 10^3/cmm (157-399) H 04/02/25: MPV 9.6 fL (7.4-10.4) 04/02/25: Neut % (Auto) 73.3 % 04/02/25: Lymph % (Auto) 17.6 % 04/02/25: Sampson % (Auto) 5.7 % 04/02/25: Eos % (Auto) 2.8 % 04/02/25: Baso % (Auto) 0.1 % 04/02/25: Neut # (Auto) 13.14 10^3/uL (1.8-7.7) H 08/16/25 22:31 Lymph # (Auto) 3.2 10^3/uL (0.8-4.8) 04/02/25 22:31 Sampson # (Auto) 1.0 10^3/uL (0.2-0.9) H 04/02/25 22:31 Eos # (Auto) 0.5 10^3/uL (0.0-0.8) 04/02/25 22:31 Baso # (Auto) 0.0 10^3/uL (0.0-0.1) 04/02/25 22:31 Nucleated RBC % (auto) 0 % 04/02/25: Nucleated RBCs # 0.0 /100WBC 04/02/25 22:31 Sodium 138 mmol/L (136-145) 04/02/25 22: Potassium 3.9 mmol/L (3.5-5.1) 04/02/25 22: Chloride 102 mmol/L (98-107) 04/02/25 22: Carbon Dioxide 21 mmol/L (22-29) L 04/02/25 22: Anion Gap 18.9 (5-19) 04/02/25 22:31 BUN 17 mg/dL (6-20) 04/02/25 22: Creatinine 1.0 mg/dL (0.5-0.9) H 04/02/25 22: GFR Calculation 66.0 mL/min (90-130) L 04/02/25: Glucose 122 mg/dL (65-115) H 04/02/25 22: Calculated Osmolality 289 mOsm/kg (285-295) 04/02/25 22: Calcium 9.8 mg/dL (8.5-10.5) 04/02/25 22: Total Bilirubin 0.4 mg/dL (0.15-1.2) 04/02/25 22: AST 8 U/L (0-32) 04/02/25 22: ALT 10 U/L (0-33) 04/02/25 22:31 Alkaline Phosphatase 128 U/L (35-105) H 04/02/25 22:31 Total Protein 7.3 g/dL (6.6-8.7) 04/02/25 22: Albumin 4.6 g/dL (3.5-5.2) 04/02/25 22:31 Globulin 2.7 g/dL (1.3-4.6) 04/02/25 22:31 Urine Color Dark yellow (Yellow) A 04/02/25 23:35 Urine Appearance Turbid (CLEAR) A 04/02/25 23:35 Urine pH 5.5 (5-7) 04/02/25 23:35 Ur Specific [place] 1.038 (1.005-1.030) H 04/02/25 23:35 Urine Protein 2+ (Negative) A 04/02/25 23:35 Urine Glucose (UA) Negative (Normal) 04/02/25 23:35 Urine Ketones 1+ (Negative) H 04/02/25 23:35 Urine Blood Negative (Negative) 04/02/25 23:35 Urine Nitrate Negative (Negative) 04/02/25 23:35 Urine Bilirubin 1+ (Negative) H 04/02/25 23:35 Urine Urobilinogen 1.0 mg/dL (Negative) 04/02/25 23:35 Ur Leukocyte Esterase 2+ (Negative) A 04/02/25 23:35 Urine RBC None /hpf (0-2) 04/02/25 23:35 Urine WBC 10-15 /hpf (0-5) H 04/02/25 23:35 Ur Squamous Epith Cells 15-25 /hpf (0-5) H 04/02/25 23:35 Amorphous Sediment Not Reportable 04/02/25 23:35 Urine Bacteria 4+ /hpf (NONE) H 04/02/25 23:35 Hyaline Casts 3-5 /lpf 04/02/25 23:35 Discharge Plan Discharge Patient Disposition: Home Clinical Impression: Gastroenteritis, UTI (urinary tract infection) Condition: Stable Prescriptions: New sulfamethoxazole-trimethoprim [Bactrim DS] 800-160 mg tablet 1 tab PO BID Qty: 10 0RF hydrocodone-acetaminophen 5-325 mg tablet 1 tab PO Q8H PRN (Reason: pain) Qty: 7 0RF ondansetron 4 mg tablet,disintegrating 4 mg PO Q6H PRN (Reason: nausea and vomiting) Qty: 14 0RF No Action cetirizine [Zyrtec] 10 mg tablet 10 mg PO DAILY Qty: 30 0RF ibuprofen 800 mg tablet 800 mg PO Q8H PRN (Reason: pain) Qty: 60 0RF fluticasone propionate [Flonase Allergy Relief] 50 mcg/actuation spray,suspension 2 spray intranasal DAILY Qty: 16 0RF Rx Instructions: administer into each nostril prednisone 20 mg tablet 60 mg PO DAILY 5 Days Qty: 15 0RF ibuprofen 600 mg tablet 600 mg PO Q8H PRN (Reason: pain) Qty: 30 0RF Discharge Orders: Discharge ED (Routine); Ordered 04/03/25 Ordered By: Fco Angulo Referrals: Kirk Starr NP [Primary Care Provider, Family Practice] - 1-3 days Patient Instructions: Urinary Tract Infection in Women (ED), Gastroenteritis (ED), Opioid Safety, Pain Management, Patient Portal & [employer]fin Instructions Activity Restrictions/Additional Instructions: Follow a liquid diet for the next 24 hours. If no vomiting, you may increase from there. Take nausea medication scheduled for the first 24 hours every 4 hours while awake. Then you may use it as you needed. Pain medication for significant pain. Return for fever greater than 100 despite 2-3 doses of antibiotics, vomiting liquids or medications despite treatment, other concerning symptoms. Print Language: Slovak Coding Level of Care Code ED Online Content Editor for Isauro Sullivan
--- NOTE | 2025-04-03 01:51 | CTR_ITS ---
PROCEDURE INFORMATION: Exam: CT Abdomen And Pelvis With Contrast Exam date and time: 04/03/2025 2:02 AM Age: 29 years old Clinical indication: Pain and abnormal findings; Abnormal lab test; Elevated wbc; Abdominal pain; Localized; Right upper quadrant (ruq); Prior surgery; Surgery date: 6+ months; Surgery type: Tubal; Ruq pain with wbc of 19k; Additional info: R abd pain TECHNIQUE: Imaging protocol: Computed tomography of the abdomen and pelvis with contrast. Radiation optimization: All CT scans at this facility use at least one of these dose optimization techniques: automated exposure control; mA and/or kV adjustment per patient size (includes targeted exams where dose is matched to clinical indication); or iterative reconstruction. Contrast material: OMNI 350; Contrast volume: 100 ml; Contrast route: INTRAVENOUS (IV); COMPARISON: US gall bladder [id number] 04/03/2025 1:30 AM RADIATION DOSE METRICS: Total DLP (mGy-cm): 909.5 FINDINGS: Lungs: The lung bases are clear. Heart: Heart size is within normal limits. There is no pericardial effusion or pericardial thickening. Liver: The liver is normal. No hepatic masses are identified. Gallbladder and biliary ducts: The gallbladder is normal. There is no ductal dilatation. Pancreas: The pancreas is normal. Spleen: The spleen is normal. Adrenal glands: The adrenal glands are normal. Kidneys and ureters: There is normal enhancement of the kidneys. No renal calcifications are identified. There is no hydronephrosis. Stomach and bowel: There is no large or small bowel obstruction. There is no evidence of bowel wall thickening. Fluid is noted throughout the colon which can be seen in diarrheal illness. Appendix: A normal appendix is identified. Intraperitoneal space: No inflammatory changes are identified. There is no free fluid or fluid collection seen. There is no pneumoperitoneum. Vasculature: The aorta is normal in course and caliber. No significant atherosclerotic calcifications are present. Lymph nodes: No enlarged lymph nodes are identified. Urinary bladder: The bladder is decompressed and collapsed. No abnormality identified. Reproductive: The uterus is present. Bones/joints: No acute osseous abnormalities are seen. Soft tissues: Tiny periumbilical hernia containing only fat. CT/CT abdomen pelvis w con* [id number] IMPRESSION: 1. Fluid is noted throughout the colon which can be seen in diarrheal illness. 2. No other evidence of acute intra-abdominal or pelvic process.
[2025-04-03] MEDS: iohexol 350 mg/mL 500 mL Btl (per mL) IV (02:05)
[2025-04-03] MEDS: cefTRIAXone 1,000 mg SDV 1000 MG IVP (02:19)
[2025-04-03 03:43] VITALS: BP 120/71; PULSE 89; RESP 17; O2SAT 97
--- NOTE | 2025-04-03 23:30 | USR_ITS ---
PROCEDURE INFORMATION: Exam: US Duplex Artery or Vein of the Abdominal and/or Reproductive Organs, Limited Liver Exam date and time: 04/03/2025 1:30 AM Age: 29 years old Clinical indication: Abdominal pain; Epigastric; Additional info: Ruq pain into back TECHNIQUE: Imaging protocol: Real-time duplex ultrasound scan of the arterial or venous flow with color Doppler flow and spectral waveform analysis with image documentation. Limited Duplex exam focused on the liver and portal venous system. Duplex exam was performed to evaluate for vascular conditions. COMPARISON: US OB follow up [facility] 07/25/2021 2:50 PM FINDINGS: Portal venous: Patent. Normal waveforms. Normal hepatopetal (towards the liver) flow. Hepatic artery: Not assessed. PROCEDURE INFORMATION: Exam: US Abdomen, Limited; Right Upper Quadrant Exam date and time: 04/03/2025 1:30 AM Age: 29 years old Clinical indication: Abdominal pain; Epigastric; Additional info: Ruq pain into back TECHNIQUE: Imaging protocol: Real time ultrasound of the abdomen with image documentation. Limited exam focused on the right upper quadrant. COMPARISON: US OB follow up [facility] 07/25/2021 2:50 PM FINDINGS: Liver: There is diffuse increased echogenicity of the hepatic parenchyma consistent with fatty infiltration. No hepatic masses are identified by ultrasound. Gallbladder: No gallstones are identified. There is no gallbladder wall thickening. Biliary ducts: There is no evidence of intra or extrahepatic ductal dilatation. The common bile duct measures 3 mm. Pancreas: The visualized portions of the pancreas are within normal limits. The tail is obscured by bowel gas. Right kidney: The right kidney is normal. There is no evidence of renal calcification or hydronephrosis. The right kidney measures 11.7 cm in length. Aorta: The visualized aorta appears within normal limits. Inferior vena cava: The visualized inferior vena cava is within normal limits. Portal venous: The portal vein is patent. US/US gall bladder [id number] IMPRESSION: Unremarkable duplex of the portal vein. IMPRESSION: 1. Fatty liver. 2. Otherwise unremarkable right upper quadrant ultrasound.
== END 2025-04-03 03:44 | disposition home or self-care (01) ==
PROVIDERS: Emergency Provider Emergency Medicine; PCP Clinical Nurse Specialist Adult Health
DX: K52.9 Noninfective gastroenteritis and colitis, unspecified (principal); N39.0 Urinary tract infection, site not specified; Z72.0 Tobacco use; E11.9 Type 2 diabetes mellitus without complications
CPT/HCPCS: 36415; 74177; 76705; 80053; 81001; 85025; 96361; 96374; 96375; 99285; J0696; J1885; J2765; J7030

== ENCOUNTER → 2025-05-09 10:34 | Outpatient (BNVA) | payer MEDICAID, SELFPAY | PROVIDERS: PCP Clinical Nurse Specialist Adult Health; Visit Provider Nurse Practitioner | DX: R39.9 Unspecified symptoms and signs involving the genitourinary system (principal) | CPT/HCPCS: 81000; 87077; 87086; 87184 ==

== ENCOUNTER → 2025-07-18 10:07 | Outpatient (BNVA) | payer MEDICAID, SELFPAY | PROVIDERS: PCP Family Medicine; Visit Provider Obstetrics & Gynecology | DX: Z12.4 Encounter for screening for malignant neoplasm of cervix (principal) | CPT/HCPCS: 88175 ==

== ENCOUNTER → 2025-08-01 09:56 | Outpatient (BNVA) | payer MEDICAID, SELFPAY | PROVIDERS: PCP Family Medicine; Visit Provider Obstetrics & Gynecology | DX: N92.0 Excessive and frequent menstruation with regular cycle (principal); R93.89 Abnormal findings on diagnostic imaging of other specified body structures; N88.8 Other specified noninflammatory disorders of cervix uteri | CPT/HCPCS: 76830 ==